=== PATIENT | male | born 1980 | race African-American/Black ===

== ENCOUNTER 2018-12-14 20:11 | Emergency (ER) | payer SELFPAY ==
--- NOTE | 2018-12-14 20:31 | EDM.PDOC ---
ED HPI GENERAL MEDICAL PROBLEM - General Chief Complaint: Respiratory Problem Stated Complaint: RIGHT SIDE PAIN Time Seen by Provider: 12/14/18 20:11 - History of Present Illness INITIAL COMMENTS - FREE TEXT/NARRATIVE: HISTORY AND PHYSICAL: History of present illness: The patient is a 38-year-old male who states no cardiac or pulmonary disease who presents with 2 weeks of cough congestion seems to have worsened over the last 1-2 days. The patient did not get his influenza shot because he doesn't believe in them and he has a history of hypertension. He has not had a documented fever and he doesn't feel short of breath but he says that he has right chest wall pain when he coughs but not sitting here at rest. He has no abdominal pain vomiting or diarrhea and no leg pain or swelling. The patient tells me that he does drink a lot of monster energy drinks and does not hydrate very much. On my evaluation at rest he is speaking in clear sentences and he says that he is not having any chest pain on the right side and less he starts coughing. The cough has been dry and hacking and nonproductive. Patient is also a tobacco smoker and denies drug use. He said that he has had a little dyspnea on exertion over the last 24-48 hours but not consistently throughout this illness. He has no leg pain or swelling Review of systems: As per history of present illness and below otherwise all systems reviewed and negative. Past medical history: As per history of present illness and as reviewed below otherwise noncontributory. Surgical history: As per history of present illness and as reviewed below otherwise noncontributory. Social history: No reported history of drug or alcohol abuse. Family history: As per history of present illness and as reviewed below otherwise noncontributory. Physical exam: General: Well-developed well-nourished man speaking clearly in the ED without breathlessness and vital signs are noted by me. HEENT: Atraumatic, normocephalic, pupils reactive, negative for conjunctival pallor or scleral icterus, mucous membranes moist, throat clear, neck supple, nontender, trachea midline. No cervical adenopathy Lungs: Clear to auscultation with diminished breath sounds in the right base but no worker breathing wheezing or stridor, breath sounds equal bilaterally, chest nontender. Heart: S1S2, regular rhythm and tachycardic rate of my evaluation but no overt murmurs Abdomen: Soft, nondistended, nontender. NABS Pelvis: Deferred Genitourinary: Deferred. Rectal: Deferred. Extremities: Atraumatic, negative for cords or calf pain. Neurovascular unremarkable. No pedal edema or leg asymmetry Neuro: Awake, alert, oriented. Cranial nerves II through XII unremarkable. Cerebellum unremarkable. Motor and sensory unremarkable throughout. Exam nonfocal. Diagnostics: EKG chest x-ray influenza swab CBC CMP lactate CT scan of the chest Therapeutics: DuoNeb, spacer and incentive spirometer IV IV fluids Toradol After the DuoNeb the patient is feeling much improved and on auscultation he is moving much more air. He does sound a bit crackly at the base which may be some atelectasis. Chest x-ray was read as no acute infiltrate but in light of his presentation and the fact that even now he has not really opening up as significantly as he should in the right lower lobe and every time he coughs he is grabbing his side I will proceed to do labs and a CAT scan. Repeat blood pressure at 2355 was 134/84 and his heart rate is 112 while he is sleeping. Upon my reevaluation the patient says that he is feeling significantly improved and would like to go home. I further asked him about other symptomatology such as waking from sleep with shortness of breath or any orthopnea, dyspnea on exertion and he says that he has not really had that to any extent except when he starts coughing. He says that he never has left-sided chest pain and only the chest pain in the chest wall when he is coughing. The patient says that he used to follow with Dr. Mondragon at [facility] and he was already aware of his cardiomegaly and says that that is new or different. I discussed with him and significant other at bedside testing results including the CAT scan and the concern about those findings. It is likely that he has a pneumonitis but a very concerned about the ill-defined results with respect to his clinical presentation. I have offered admission for further care and evaluation and because the patient has to go to work he has declined that. He is aware of my concerns and states he will return if his symptoms evolve or change. I will place his name on the expedited follow-up for cardiology and I will treat him with Levaquin for home as he is a smoker as well as a Z-Pakand an albuterol inhaler with spacer. Impression: Acute bronchitis/right chest wall pain with persistent coughing, bilateral pneumonitis with abnormal CAT scan rule out early congestive heart failure, declining admission Definitive disposition and diagnosis as appropriate pending reevaluation and review of above. right side of the chest Pain Score (Numeric/FACES): 9 - Related Data Allergies Allergy/AdvReac Type Severity Reaction Status Date / Time No Known Allergies Allergy Verified 12/14/18 20:25 Home Meds: Home Meds . [No Known Home Meds] 12/14/18 [History] Past Medical History HEENT History: Reports: None Cardiovascular History: Reports: Hypertension Respiratory History: Reports: None Gastrointestinal History: Reports: None Genitourinary History: Reports: None Musculoskeletal History: Reports: None Neurological History: Reports: None Psychiatric History: Reports: None Endocrine/Metabolic History: Reports: None Hematologic History: Reports: None Immunologic History: Reports: None Oncologic (Cancer) History: Reports: None Dermatologic History: Reports: None - Infectious Disease History Infectious Disease History: Reports: None - Past Surgical History Head Surgeries/Procedures: Reports: None Social & Family History - Family History Family Medical History: Noncontributory ED ROS GENERAL - Review of Systems Review Of Systems: ROS reveals no pertinent complaints other than HPI. ED EXAM, GENERAL - Physical Exam Exam: See Below (see Dictation) Course - Vital Signs Last Recorded V/S: Last Vital Signs Temp 36.1 C 12/14/18 20:25 Pulse 112 H 12/14/18 23:58 Resp 20 12/14/18 20:25 BP 134/89 12/14/18 23:58 Pulse Ox 97 12/14/18 20:50 - Orders/Labs/Meds Orders: Active Orders 24 hr Category Date Time Status Communication Order [RC] STAT Care 12/14/18 21:39 Active EKG Documentation Completion [RC] STAT Care 12/14/18 20:30 Active RT Aerosol Therapy [RC] ASDIRECTED Care 12/14/18 20:34 Active Sodium Chloride 0.9% [Saline Flush] Med 12/14/18 21:46 Active 10 ml FLUSH ASDIRECTED PRN Sodium Chloride 0.9% [Saline Flush] Med 12/14/18 21:46 Active 2.5 ml FLUSH ASDIRECTED PRN Saline Lock Insert [OM.PC] Stat Ot 12/14/18 21:46 Ordered Medication Orders Sodium Chloride (Saline Flush) 10 ml FLUSH ASDIRECTED PRN PRN Reason: Keep Vein Open Sodium Chloride (Saline Flush) 2.5 ml FLUSH ASDIRECTED PRN PRN Reason: Keep Vein Open Labs: Laboratory Tests 12/14/18 12/14/18 12/14/18 Range/Units 22:05 22:05 22:05 WBC 6.19 (4.0-11.0) K/uL RBC 4.06 L (4.50-5.90) M/uL Hgb 12.5 L (13.0-17.0) g/dL Hct 36.8 L (38.0-50.0) % MCV 90.6 (80.0-98.0) fL MCH 30.8 (27.0-32.0) pg MCHC 34.0 (31.0-37.0) g/dL RDW Std Deviation 42.6 (28.0-62.0) fl RDW Coeff of Mahendra 13 (11.0-15.0) % Plt Count 328 (150-400) K/uL MPV 10.00 (7.40-12.00) fL Neut % (Auto) 50.5 (48.0-80.0) % Lymph % (Auto) 42.6 H (16.0-40.0) % [place] % (Auto) 5.8 (0.0-15.0) % Eos % (Auto) 0.6 (0.0-7.0) % Baso % (Auto) 0.5 (0.0-1.5) % Neut # (Auto) 3.1 (1.4-5.7) K/uL Lymph # (Auto) 2.6 H (0.6-2.4) K/uL [place] # (Auto) 0.4 (0.0-0.8) K/uL Eos # (Auto) 0.0 (0.0-0.7) K/uL Baso # (Auto) 0.0 (0.0-0.1) K/uL Nucleated RBC % 0.0 /100WBC Nucleated RBCs # 0 K/uL Lactate 1.2 (0.20-2.00) mmol/L Sodium 142 (136-148) mmol/L Potassium 3.7 (3.5-5.1) mmol/L Chloride 106 (98-107) mmol/L Carbon Dioxide 23.8 (21.0-32.0) mmol/L BUN 21 H (7.0-18.0) mg/dL Creatinine 1.3 (0.8-1.3) mg/dL Est Cr Clr Drug Dosing 64.51 mL/min Estimated GFR (MDRD) > 60.0 ml/min Glucose 94 (74-106) mg/dL Calcium 8.5 (8.5-10.1) mg/dL Total Bilirubin 0.3 (0.2-1.0) mg/dL AST 28 (15-37) IU/L ALT 39 (14-63) IU/L Alkaline Phosphatase 50 (46-116) U/L Total Protein 7.2 (6.4-8.2) g/dL Albumin 3.1 L (3.4-5.0) g/dL Globulin 4.1 H (2.6-4.0) g/dL Albumin/Globulin Ratio 0.8 L (0.9-1.6) Meds: Medications Generic Name Dose Route Start Last Admin Trade Name Freq PRN Reason Stop Dose Admin Sodium Chloride 10 ml 12/14/18 21:46 Saline Flush FLUSH ASDIRECTED PRN Keep Vein Open Sodium Chloride 2.5 ml 12/14/18 21:46 Saline Flush FLUSH ASDIRECTED PRN Keep Vein Open Discontinued Medications Generic Name Dose Route Start Last Admin Trade Name Freq PRN Reason Stop Dose Admin Albuterol/Ipratropium 3 ml 12/14/18 20:34 12/14/18 20:50 Duoneb 3.0-0.5 Mg/3 Ml NEB 12/14/18 20:35 3 ml ONETIME ONE Administration Sodium Chloride 1,000 mls @ 999 mls/hr 12/14/18 21:47 12/14/18 22:10 Normal Saline IV 12/14/18 22:47 999 mls/hr STAT ONE Administration Iopamidol 50 ml 12/14/18 23:04 12/14/18 23:04 Isovue Multipack-370 (76%) IVPUSH 12/14/18 23:05 50 ml ONETIME ONE Administration Ketorolac Tromethamine 30 mg 12/14/18 21:47 12/14/18 22:11 Toradol IVPUSH 12/14/18 21:48 30 mg ONETIME ONE Administration Levofloxacin 500 mg 12/15/18 00:13 Levaquin PO 12/15/18 00:14 ONETIME ONE Levofloxacin 500 mg 12/15/18 00:14 Levaquin PO 12/15/18 00:15 ONETIME ONE Departure - Departure Time of Disposition: 00:17 Disposition: Home, Self-Care 01 Condition: Good Clinical Impression: Pneumonitis, Bronchitis - Discharge Information Referrals: PCP,None [Primary Care Provider] - Forms: ED Department Discharge Additional Instructions: The following information is given to patients seen in the emergency department who are being discharged to home. This information is to outline your options for follow-up care. We provide all patients seen in our emergency department with a follow-up referral. The need for follow-up, as well as the timing and circumstances, are variable depending upon the specifics of your emergency department visit. If you don't have a primary care physician on staff, we will provide you with a referral. We always advise you to contact your personal physician following an emergency department visit to inform them of the circumstance of the visit and for follow-up with them and/or the need for any referrals to a consulting specialist. The emergency department will also refer you to a specialist when appropriate. This referral assures that you have the opportunity for followup care with a specialist. All of these measure are taken in an effort to provide you with optimal care, which includes your followup. Under all circumstances we always encourage you to contact your private physician who remains a resource for coordinating your care. When calling for followup care, please make the office aware that this follow-up is from your recent emergency room visit. If for any reason you are refused follow-up, please contact the [facility] emergency department at and ask to speak to the emergency department charge nurse. [facility] Primary care- Internal Medicine and Family [address] [id number] Please call the clinic tomorrow and schedule a follow-up appointment with our research editor Dr. Johnson for the next few days making sure to tell the corporate receptionist that you were placed on his expedited follow-up list. Please also call and schedule a follow-up appointment with primary care using the same number that it can occur next week. Please use all medications as prescribed and return to ER as needed and as we discussed. - My Orders Last 24 Hours: My Active Orders 12/14/18 20:30 EKG Documentation Completion [RC] STAT 12/14/18 20:34 RT Aerosol Therapy [RC] ASDIRECTED 12/14/18 21:39 Communication Order [RC] STAT 12/14/18 21:46 Sodium Chloride 0.9% [Saline Flush] 10 ml FLUSH ASDIRECTED PRN Sodium Chloride 0.9% [Saline Flush] 2.5 ml FLUSH ASDIRECTED PRN Saline Lock Insert [OM.PC] Stat - Assessment/Plan Last 24 Hours: My Active Orders 12/14/18 20:30 EKG Documentation Completion [RC] STAT 12/14/18 20:34 RT Aerosol Therapy [RC] ASDIRECTED 12/14/18 21:39 Communication Order [RC] STAT 12/14/18 21:46 Sodium Chloride 0.9% [Saline Flush] 10 ml FLUSH ASDIRECTED PRN Sodium Chloride 0.9% [Saline Flush] 2.5 ml FLUSH ASDIRECTED PRN Saline Lock Insert [OM.PC] Stat
[2018-12-14] MEDS ORDERED: Albuterol/Ipratropium 3.0-0.5 MG/3 ML Neb Soln NEB ONE (20:34)
--- NOTE | 2018-12-14 20:55 | CR ---
INDICATION: Cough x2 weeks with right side chest pain. TECHNIQUE: Chest 2 views COMPARISON: February 05, 2016. FINDINGS: Cardiovascular and mediastinum: Moderate cardiomegaly with central vascular congestion. Lungs and pleural spaces: Lungs are clear. No sign of infiltrate or mass. No sign of pleural effusion. No pneumothorax. Bones and soft tissues: No significant findings. IMPRESSION: Central congestive changes could represent pulmonary edema or bronchitis. No sign of lobar pneumonia. Dictated by Oleg Grajeda MD @ Dec 14 2018 8:49PM Signed by Dr. Oleg Grajeda @ Dec 14 2018 8:53PM
[2018-12-14] MEDS ORDERED: Sodium Chloride 0.9% 2.5 ML Syringe FLUSH PRN (21:46)
[2018-12-14] MEDS ORDERED: Sodium Chloride 0.9% 10 ML Syringe FLUSH PRN (21:46)
[2018-12-14] MEDS ORDERED: Sodium Chloride 0.9% 1,000 ML IV ONE (21:47)
[2018-12-14] MEDS ORDERED: Ketorolac 30 MG/ML SDV IVPUSH ONE (21:47)
[2018-12-14 22:36] LABS: CHLORIDE,CL 106 mmol/L (98-107); SODIUM,NA 142 mmol/L (136-148)
[2018-12-14] MEDS ORDERED: Iopamidol 755 MG/ML 500 ML Multipack Bottle IVPUSH ONE (23:04)
--- NOTE | 2018-12-14 23:49 | CT ---
INDICATION: Chest pain and cough TECHNIQUE: CT chest pulmonary PE protocol acquired with IV contrast. 50 mL of Isovue 370 administered. COMPARISON: None FINDINGS: Cardiovascular structures: Limited evaluation of some distal segmental and subsegmental pulmonary arteries due to heterogeneous opacification and mild respiratory motion. No large, central or proximal segmental pulmonary embolus seen. Cardiomegaly. Contrast reflux into the IVC and hepatic veins. Borderline ectasia of the ascending aorta. Mediastinum and lorene: An enlarged azygoesophageal lymph node measuring up to 1.9 cm in short axis, mildly enlarged and borderline paratracheal lymph nodes and additional shotty subcentimeter mediastinal lymph nodes. Borderline hilar lymph nodes. Lungs: Bilateral patchy ground-glass opacities involving all lobes. Interlobular septal thickening at the apices. Central bronchial wall thickening versus peribronchial edema. Pleura and pericardium: A tiny right pleural effusion. Chest wall and axilla: No mass or adenopathy. Upper abdomen: Unremarkable. Bones: No significant findings. IMPRESSION: No CT evidence of a large, central or proximal segmental pulmonary embolus. Bilateral patchy ground-glass opacities compatible with infectious or inflammatory pneumonitis versus evolving pulmonary edema. Cardiomegaly with findings compatible with elevated right cardiac pressure. Central bronchial wall thickening versus peribronchial edema. Correlate for bronchitis. A tiny right pleural effusion. Enlarged and borderline mediastinal and hilar lymph nodes. Dictated by Garo Appiah MD @ 12/14/2018 11:48:04 PM Please note that all CT scans at this facility use dose modulation, iterative reconstruction, and/or weight-based dosing when appropriate to reduce radiation dose to as low as reasonably achievable. Dictated by: Garo Appiah MD @ 12/14/2018 23:48:13 (Electronically Signed)
[2018-12-15] MEDS ORDERED: Levofloxacin 500 MG Tab PO ONE ×2 (00:13→00:14)
[2018-12-15] MEDS ORDERED: Albuterol/Ipratropium 3.0-0.5 MG/3 ML Neb Soln NEB ONE (00:19)
[2018-12-15 00:34] VITALS: BP 129/87
[2018-12-15] MEDS ORDERED: Codeine/Promethazine 10-6.25 MG/5 ML Syrup 5 ML UD Cup PO ONE (00:38)
== END 2018-12-15 00:53 | disposition home or self-care (01) ==
LOC: MW.ED 20:11
DX: J18.9 Pneumonia, unspecified organism (principal); J40 Bronchitis, not specified as acute or chronic; R07.89 Other chest pain; I10 Essential (primary) hypertension
CPT/HCPCS: 36415; 71046; 71275; 80053; 83605; 85025; 87804; 93005; 94640; 96361; 96374; 99285; A9270; J1885; J7040; Q9967; 99284; J7620-GY

== ENCOUNTER 2018-12-15 15:30 | Observation (INO) | payer SELFPAY ==
[2018-12-15] MEDS ORDERED: Lisinopril 10 MG Tab PO SCH (15:45)
[2018-12-15] MEDS ORDERED: Sodium Chloride 0.9% 2.5 ML Syringe FLUSH PRN (15:51)
[2018-12-15] MEDS ORDERED: Sodium Chloride 0.9% 10 ML Syringe FLUSH PRN (15:51)
[2018-12-15] MEDS ORDERED: Acetaminophen 325 MG Tab PO PRN (15:59)
[2018-12-15] MEDS ORDERED: Ondansetron 4 MG Tab.DIS PO PRN (15:59)
[2018-12-15] MEDS ORDERED: Temazepam 15 MG Cap PO PRN (15:59)
[2018-12-15] MEDS ORDERED: oxyCODONE 5 MG Tab PO PRN (15:59)
[2018-12-15] MEDS ORDERED: Morphine 2 MG/ML Syringe IVPUSH PRN (15:59)
[2018-12-15] MEDS ORDERED: Docusate Sodium 100 MG Cap PO PRN (15:59)
[2018-12-15] MEDS ORDERED: Heparin Sodium 5,000 Units/ML Vial SUBCUT SCH (16:00)
[2018-12-15] MEDS: Furosemide 40 MG/4 ML VIAL IVPUSH SCH (16:06)
--- NOTE | 2018-12-15 16:09 | PCM.HP ---
H&P History of Present Illness - General Date of Service: 12/15/18 Admit Problem/Dx: Admission Diagnosis/Problem Admission Diagnosis/Problem Congestive heart failure, new onset. HTN Source of Information: Patient History Limitations: Reports: No Limitations - History of Present Illness Initial Comments - Free Text/Narative: The patient is a 38-year-old gentleman who had been evaluated by cardiology and had been admitted directly to hospitalization under my service. The patient was evaluated in the emergency department on December 14, 2018 out of concern for shortness of breath and cough. The patient reported that he had had 2 weeks of cough and congestion that had worsened. The patient says that he has a history of high blood pressure but has not been compliant with his medications. He also had been complaining of shortness of breath. Patient has denied any chest pain except in his right lower chest wall when coughing. The patient is currently a smoker. A cardiology evaluation the patient was noted to have cardiomegaly on chest x-ray as well as cardiomyopathy with a 25% ejection fraction on 2-D echocardiogram. The patient had denied any leg pain or swelling. The patient also has said that he has had some shortness of breath when lying flat. He is in no specific aggravating or relieving factors. He is currently working. Onset of Symptoms: Reports: Gradual Duration of Symptoms: Reports: Week(s): Location: Reports: Chest Quality: Reports: Dull Severity: Moderate Improves with: Reports: Rest Worsens with: Reports: Movement Context: Reports: Other (Upper respiratory illness) Associated Symptoms: Reports: Chest Pain, Cough - Related Data Allergies/Adverse Reactions: Allergies Allergy/AdvReac Type Severity Reaction Status Date / Time No Known Allergies Allergy Verified 12/14/18 20:25 Home Medications: Home Meds Albuterol Sulfate [Albuterol Sulfate Hfa] 1 - 2 puff IH Q6H PRN 12/15/18 [ History] Azithromycin [Zithromax] 250 mg PO ASDIRECTED 12/15/18 [History] Levofloxacin 750 mg PO DAILY 12/15/18 [History] Past Medical History HEENT History: Reports: None Cardiovascular History: Reports: Hypertension Respiratory History: Reports: None Gastrointestinal History: Reports: None Genitourinary History: Reports: None Musculoskeletal History: Reports: None Neurological History: Reports: None Psychiatric History: Reports: None Endocrine/Metabolic History: Reports: None Hematologic History: Reports: None Immunologic History: Reports: None Oncologic (Cancer) History: Reports: None Dermatologic History: Reports: None - Infectious Disease History Infectious Disease History: Reports: None - Past Surgical History Head Surgeries/Procedures: Reports: None Social & Family History - Family History Family Medical History: Noncontributory - Tobacco Use Smoking Status *Q: Current Every Day Smoker Tobacco Use Within Last Twelve Months: Cigarettes - Caffeine Use Caffeine Use: Reports: Energy Drinks - Alcohol Use Alcohol Use History: No - Living Situation & Occupation Living situation: Reports: , with Spouse, with Family Occupation: Employed H&P Review of Systems - Review of Systems: Review Of Systems: See Below General: Reports: Fever, Other (Excessive thirst) HEENT: Reports: Sinus Congestion Pulmonary: Reports: Shortness of Breath, Cough. Denies: Sputum Cardiovascular: Reports: Chest Pain, Palpitations Gastrointestinal: Reports: No Symptoms Genitourinary: Reports: No Symptoms Musculoskeletal: Reports: No Symptoms Skin: Reports: No Symptoms Psychiatric: Reports: No Symptoms Neurological: Reports: No Symptoms Hematologic/Lymphatic: Reports: No Symptoms Immunologic: Reports: No Symptoms Exam - Exam Exam: See Below - Vital Signs Vital Signs: Last Vital Signs Temp 37.4 C 12/15/18 15:39 Pulse Resp 20 12/15/18 15:39 BP 156/104 H 12/15/18 16:06 Pulse Ox 92 L 12/15/18 15:39 - Exam Quality Assessment: No: Supplemental Oxygen General: Alert, Oriented, Cooperative, Mild Distress HEENT: Conjunctiva Clear, EACs Clear, EOMI, Hearing Intact, Mucosa Moist & [place] , Pupils Equal, PERRLA Neck: Supple, Trachea Midline. No: Carotid Bruit, JVD Lungs: Normal Respiratory Effort, Crackles Cardiovascular: Regular Rhythm, Tachycardia. No: Regular Rate GI/Abdominal Exam: Normal Bowel Sounds, Soft, Non-Tender, No Distention (Male) Exam: Deferred Rectal (Males) Exam: Deferred Back Exam: Normal Inspection, Full Range of Motion Extremities: Normal Inspection, Normal Range of Motion, No Pedal Edema Skin: Warm, Dry, Intact Neurological: Cranial Nerves Intact, Reflexes Equal Bilateral, Normal Gait Neuro Extensive - Mental Status: Alert, Oriented x3, Normal Mood/Affect, Memory Intact Neuro Extensive - Motor, Sensory, Reflexes: CN II-XII Intact Psychiatric: Alert, Normal Affect, Normal Mood - Patient Data Result Diagrams: 12/15/18 16:00 12/15/18 16:00 - Problem List (1) Congestive heart failure with reduced left ventricular function, NYHA class 3 SNOMED Code(s): 772142111, 538056135, [id number] ICD Code: I50.20 - UNSPECIFIED SYSTOLIC (CONGESTIVE) HEART FAILURE Status: Chronic Priority: High Current Visit: Yes (2) Hypertensive cardiomegaly with heart failure SNOMED Code(s): 183809101, 767703273 ICD Code: I11.0 - HYPERTENSIVE HEART DISEASE WITH HEART FAILURE Status: Chronic Priority: High Current Visit: Yes (3) Hypertension SNOMED Code(s): 16062598 ICD Code: I10 - ESSENTIAL (PRIMARY) HYPERTENSION Status: Chronic Priority : High Current Visit: Yes Qualifiers: Hypertension type: essential hypertension Qualified Code(s): I10 - Essential (primary) hypertension Problem List Initiated/Reviewed/Updated: Yes Orders Last 24hrs: Active Orders 24 hr Category Date Time Status Patient Status [ADT] Routine ADT 12/15/18 15:59 Ordered Cardiac Monitoring [RC] CONTINUOUS Care 12/15/18 16:02 Ordered Intake and Output Strict [RC] ASDIRECTED Care 12/15/18 15:43 Active Intake and Output [RC] QSHIFT Care 12/15/18 16:02 Ordered Notify Provider Consults [RC] ASDIRECTED Care 12/15/18 16:06 Ordered Oxygen Therapy [RC] PRN Care 12/15/18 15:59 Ordered Up ad Debra [RC] ASDIRECTED Care 12/15/18 15:59 Ordered VTE/DVT Education [RC] PER UNIT ROUTINE Care 12/15/18 15:59 Ordered Vital Signs [RC] Q4H Care 12/15/18 15:59 Ordered Weight Daily [Height and Weight] [RC] DAILY Care 12/15/18 15:42 Active Consult to Physician [CONS] Routine Cons 12/15/18 15:59 Ordered Heart Healthy Diet [DIET] Diet 12/15/18 Dinner Ordered Echo Comp wo Cont [US] Routine Exams 12/16/18 15:44 Ordered B-TYPE NATRIURETIC PEPTIDE,BNP [CHEM] Routine Lab 12/15/18 15:48 Ordered CBC WITH AUTO DIFF [HEME] AM Lab 12/16/18 05:11 Ordered CBC WITH AUTO DIFF [HEME] Routine Lab 12/15/18 15:48 Ordered COMPREHENSIVE METABOLIC PN,CMP [CHEM] AM Lab 12/16/18 05:11 Ordered COMPREHENSIVE METABOLIC PN,CMP [CHEM] Routine Lab 12/15/18 15:47 Ordered GLYCOSYLATED HEMOGLOBIN,HGBA1C [CHEM] Routine Lab 12/15/18 15:49 Ordered GLYCOSYLATED HEMOGLOBIN,HGBA1C [CHEM] Routine Lab 12/15/18 16:07 Ordered INR,PT,PROTHROMBIN TIME [COAG] Routine Lab 12/15/18 15:49 Ordered LIPID PANEL [CHEM] AM Lab 12/16/18 05:11 Ordered MAGNESIUM [CHEM] Routine Lab 12/15/18 15:59 Ordered PHOSPHORUS [CHEM] Routine Lab 12/15/18 15:59 Ordered TROPONIN I [CHEM] Q8H Lab 12/15/18 15:47 Ordered TROPONIN I [CHEM] Q8H Lab 12/15/18 23:47 Ordered TROPONIN I [CHEM] Q8H Lab 12/16/18 07:47 Ordered TSH [CHEM] Routine Lab 12/15/18 15:47 Ordered Acetaminophen [Tylenol] Med 12/15/18 15:59 Ordered 650 mg PO Q4H PRN Docusate Sodium [Colace] Med 12/15/18 15:59 Ordered 100 mg PO BID PRN Furosemide [Lasix] Med 12/15/18 15:45 Active 40 mg IVPUSH BID Heparin Sodium Med 12/15/18 16:00 Active 5,000 units SUBCUT Q12H Heparin Sodium Med 12/15/18 16:00 Ordered 5,000 units SUBCUT Q8H Lisinopril [Prinivil] Med 12/15/18 15:45 Active 10 mg PO DAILY Morphine Med 12/15/18 15:59 Ordered 2 mg IVPUSH Q2H PRN Ondansetron [Zofran ODT] Med 12/15/18 15:59 Ordered 4 mg PO Q4H PRN Sodium Chloride 0.9% [Saline Flush] Med 12/15/18 15:51 Active 10 ml FLUSH ASDIRECTED PRN Sodium Chloride 0.9% [Saline Flush] Med 12/15/18 15:51 Active 2.5 ml FLUSH ASDIRECTED PRN Temazepam [Restoril] Med 12/15/18 15:59 Ordered 15 mg PO BEDTIME PRN oxyCODONE Med 12/15/18 15:59 Ordered 5 mg PO Q4H PRN Saline Lock Insert [OM.PC] Routine Oth 12/15/18 15:51 Ordered Resuscitation Status Routine Resus Stat 12/15/18 15:59 Ordered Medication Orders Acetaminophen (Tylenol) 650 mg PO Q4H PRN PRN Reason: Pain (Mild 1-3)/fever Docusate Sodium (Colace) 100 mg PO BID PRN PRN Reason: Constipation Furosemide (Lasix) 40 mg IVPUSH BID [facility] Last Admin: 12/15/18 16:06 Dose: 40 mg Heparin Sodium (Porcine) (Heparin Sodium) 5,000 units SUBCUT Q12H [facility] Heparin Sodium (Porcine) (Heparin Sodium) 5,000 units SUBCUT Q8H [facility] Lisinopril (Prinivil) 10 mg PO DAILY [facility] Last Admin: 12/15/18 16:06 Dose: 10 mg Morphine Sulfate (Morphine) 2 mg IVPUSH Q2H PRN PRN Reason: Pain (severe 7-10) Stop: 12/16/18 16:05 Ondansetron HCl (Zofran Odt) 4 mg PO Q4H PRN PRN Reason: nausea, able to take PO Oxycodone HCl (Oxycodone) 5 mg PO Q4H PRN PRN Reason: Pain (moderate 4-6) Sodium Chloride (Saline Flush) 10 ml FLUSH ASDIRECTED PRN PRN Reason: Keep Vein Open Sodium Chloride (Saline Flush) 2.5 ml FLUSH ASDIRECTED PRN PRN Reason: Keep Vein Open Temazepam (Restoril) 15 mg PO BEDTIME PRN PRN Reason: Sleep Assessment/Plan Comment:: The patient is a 38-year-old gentleman who does have a history of hypertension and reportedly had been diagnosed with an "enlarged heart" 5 years ago. Is likely that the patient's findings with regards to cardiology are chronic in nature. The patient also has been noncompliant with his antihypertensive medications and is likely indicates hypertensive cardiomyopathy. I've ordered consultation with cardiology. The patient will be kept on a heart healthy, low- sodium diet with fluid restriction. The patient will also be kept on telemetry. The patient will have his vital signs monitored every 4 hours and his medications will be adjusted as needed to control his pressures. The patient will also be given DVT prophylaxis with the use of Lovenox. I have also recommended the patient not be on antibiotics at this time. These can be restarted if necessary. I've also ordered repeat laboratory studies for the morning. The patient has been encouraged to ambulate. The patient also had a history of excessive thirst and urination as well as family history of diabetes and I ordered a hemoglobin A1c to help exclude diabetes mellitus.
[2018-12-15 16:43] LABS: HEMOGLOBIN A1C 5.6 % (4.5-6.2)
[2018-12-15 16:49] LABS: CHLORIDE,CL 107 mmol/L (98-107); SODIUM,NA 142 mmol/L (136-148)
[2018-12-15] MEDS ORDERED: Albuterol 8 GM Inhaler INH PRN (17:08)
[2018-12-15] MEDS: Heparin Sodium 5,000 Units/ML Vial SUBCUT SCH (17:22)
[2018-12-15] MEDS ORDERED: Benzocaine/Cetylpyridinium/Menthol Lozenge MUCMEM PRN (20:42)
[2018-12-15] MEDS: Metoprolol Succinate 25 MG Tab.ER PO SCH (23:06)
[2018-12-16] MEDS: Heparin Sodium 5,000 Units/ML Vial SUBCUT SCH ×2 (03:38→15:51)
[2018-12-16] MEDS: Furosemide 40 MG/4 ML VIAL IVPUSH SCH (08:27)
[2018-12-16] MEDS: Metoprolol Succinate 25 MG Tab.ER PO SCH (08:34)
[2018-12-16 08:35] LABS: CHLORIDE,CL 107 mmol/L (98-107); SODIUM,NA 143 mmol/L (136-148)
[2018-12-16] MEDS ORDERED: Lisinopril 10 MG Tab PO SCH (09:00)
--- NOTE | 2018-12-16 11:23 | PCM.PN ---
- Patient Data Vitals - Most Recent: Last Vital Signs Temp 36.2 C 12/16/18 08:00 Pulse 122 H 12/16/18 08:34 Resp 18 12/16/18 08:00 BP 153/114 H 12/16/18 08:34 Pulse Ox 93 L 12/16/18 08:00 Weight - Most Recent: 76.884 kg I&O - Last 24 Hours: Intake & Output 12/15/18 12/16/18 12/16/18 22:59 06:59 14:59 Intake Total 60 510 Output Total 1650 Balance 60 -1140 Lab Results Last 24 Hours: Laboratory Results - last 24 hr 12/15/18 12/15/18 12/15/18 Range/Units 15:55 16:00 16:00 WBC 8.90 (4.0-11.0) K/uL RBC 3.95 L (4.50-5.90) M/uL Hgb 12.2 L (13.0-17.0) g/dL Hct 36.3 L (38.0-50.0) % MCV 91.9 (80.0-98.0) fL MCH 30.9 (27.0-32.0) pg MCHC 33.6 (31.0-37.0) g/dL RDW Std Deviation 44.1 (28.0-62.0) fl RDW Coeff of Mahendra 13 (11.0-15.0) % Plt Count 303 (150-400) K/uL MPV 10.00 (7.40-12.00) fL Neut % (Auto) 63.5 (48.0-80.0) % Lymph % (Auto) 30.4 (16.0-40.0) % Delta % (Auto) 5.5 (0.0-15.0) % Eos % (Auto) 0.3 (0.0-7.0) % Baso % (Auto) 0.3 (0.0-1.5) % Neut # (Auto) 5.6 (1.4-5.7) K/uL Lymph # (Auto) 2.7 H (0.6-2.4) K/uL Delta # (Auto) 0.5 (0.0-0.8) K/uL Eos # (Auto) 0.0 (0.0-0.7) K/uL Baso # (Auto) 0.0 (0.0-0.1) K/uL Nucleated RBC % 0.0 /100WBC Nucleated RBCs # 0 K/uL INR Sodium 142 (136-148) mmol/L Potassium 4.0 (3.5-5.1) mmol/L Chloride 107 (98-107) mmol/L Carbon Dioxide 24.6 (21.0-32.0) mmol/L BUN 15 (7.0-18.0) mg/dL Creatinine 1.3 (0.8-1.3) mg/dL Est Cr Clr Drug Dosing 64.51 mL/min Estimated GFR (MDRD) > 60.0 ml/min Glucose 103 (74-106) mg/dL Hemoglobin A1c (4.5-6.2) % Calcium 8.4 L (8.5-10.1) mg/dL Phosphorus 3.6 (2.6-4.7) mg/dL Magnesium 2.1 (1.8-2.4) mg/dL Total Bilirubin 0.3 (0.2-1.0) mg/dL AST 21 (15-37) IU/L ALT 31 (14-63) IU/L Alkaline Phosphatase 45 L (46-116) U/L Troponin I 0.055 (0.000-0.056) ng/mL B-Natriuretic Peptide (<100) PG/ML Total Protein 6.7 (6.4-8.2) g/dL Albumin 2.7 L (3.4-5.0) g/dL Globulin 4.0 (2.6-4.0) g/dL Albumin/Globulin Ratio 0.7 L (0.9-1.6) Triglycerides (0-200) mg/dL Cholesterol (50-200) mg/dL LDL Cholesterol, Calc (60-180) mg/dL VLDL Cholesterol (5-55) mg/dL HDL Cholesterol (40-60) mg/dL Cholesterol/HDL Ratio (3.3-6.0) TSH 3rd Generation 1.00 (0.36-3.74) uIU/mL 12/15/18 12/15/18 12/15/18 Range/Units 16:00 16:00 16:00 WBC (4.0-11.0) K/uL RBC (4.50-5.90) M/uL Hgb (13.0-17.0) g/dL Hct (38.0-50.0) % MCV (80.0-98.0) fL MCH (27.0-32.0) pg MCHC (31.0-37.0) g/dL RDW Std Deviation (28.0-62.0) fl RDW Coeff of Mahendra (11.0-15.0) % Plt Count (150-400) K/uL MPV (7.40-12.00) fL Neut % (Auto) (48.0-80.0) % Lymph % (Auto) (16.0-40.0) % Delta % (Auto) (0.0-15.0) % Eos % (Auto) (0.0-7.0) % Baso % (Auto) (0.0-1.5) % Neut # (Auto) (1.4-5.7) K/uL Lymph # (Auto) (0.6-2.4) K/uL Delta # (Auto) (0.0-0.8) K/uL Eos # (Auto) (0.0-0.7) K/uL Baso # (Auto) (0.0-0.1) K/uL Nucleated RBC % /100WBC Nucleated RBCs # K/uL INR 1.03 Sodium (136-148) mmol/L Potassium (3.5-5.1) mmol/L Chloride (98-107) mmol/L Carbon Dioxide (21.0-32.0) mmol/L BUN (7.0-18.0) mg/dL Creatinine (0.8-1.3) mg/dL Est Cr Clr Drug Dosing mL/min Estimated GFR (MDRD) ml/min Glucose (74-106) mg/dL Hemoglobin A1c 5.6 (4.5-6.2) % Calcium (8.5-10.1) mg/dL Phosphorus (2.6-4.7) mg/dL Magnesium (1.8-2.4) mg/dL Total Bilirubin (0.2-1.0) mg/dL AST (15-37) IU/L ALT (14-63) IU/L Alkaline Phosphatase (46-116) U/L Troponin I (0.000-0.056) ng/mL B-Natriuretic Peptide 264 H (<100) PG/ML Total Protein (6.4-8.2) g/dL Albumin (3.4-5.0) g/dL Globulin (2.6-4.0) g/dL Albumin/Globulin Ratio (0.9-1.6) Triglycerides (0-200) mg/dL Cholesterol (50-200) mg/dL LDL Cholesterol, Calc (60-180) mg/dL VLDL Cholesterol (5-55) mg/dL HDL Cholesterol (40-60) mg/dL Cholesterol/HDL Ratio (3.3-6.0) TSH 3rd Generation (0.36-3.74) uIU/mL 12/15/18 12/16/18 12/16/18 Range/Units 23:53 07:54 07:54 WBC (4.0-11.0) K/uL RBC (4.50-5.90) M/uL Hgb (13.0-17.0) g/dL Hct (38.0-50.0) % MCV (80.0-98.0) fL MCH (27.0-32.0) pg MCHC (31.0-37.0) g/dL RDW Std Deviation (28.0-62.0) fl RDW Coeff of Mahendra (11.0-15.0) % Plt Count (150-400) K/uL MPV (7.40-12.00) fL Neut % (Auto) (48.0-80.0) % Lymph % (Auto) (16.0-40.0) % Delta % (Auto) (0.0-15.0) % Eos % (Auto) (0.0-7.0) % Baso % (Auto) (0.0-1.5) % Neut # (Auto) (1.4-5.7) K/uL Lymph # (Auto) (0.6-2.4) K/uL Delta # (Auto) (0.0-0.8) K/uL Eos # (Auto) (0.0-0.7) K/uL Baso # (Auto) (0.0-0.1) K/uL Nucleated RBC % /100WBC Nucleated RBCs # K/uL INR Sodium 143 (136-148) mmol/L Potassium 4.1 (3.5-5.1) mmol/L Chloride 107 (98-107) mmol/L Carbon Dioxide 22.9 (21.0-32.0) mmol/L BUN 13 (7.0-18.0) mg/dL Creatinine 1.3 (0.8-1.3) mg/dL Est Cr Clr Drug Dosing 64.51 mL/min Estimated GFR (MDRD) > 60.0 ml/min Glucose 96 (74-106) mg/dL Hemoglobin A1c (4.5-6.2) % Calcium 8.5 (8.5-10.1) mg/dL Phosphorus (2.6-4.7) mg/dL Magnesium (1.8-2.4) mg/dL Total Bilirubin 0.8 (0.2-1.0) mg/dL AST 17 (15-37) IU/L ALT 28 (14-63) IU/L Alkaline Phosphatase 47 (46-116) U/L Troponin I 0.056 0.058 H* (0.000-0.056) ng/mL B-Natriuretic Peptide (<100) PG/ML Total Protein 6.5 (6.4-8.2) g/dL Albumin 2.9 L (3.4-5.0) g/dL Globulin 3.6 (2.6-4.0) g/dL Albumin/Globulin Ratio 0.8 L (0.9-1.6) Triglycerides 80 (0-200) mg/dL Cholesterol 212 H (50-200) mg/dL LDL Cholesterol, Calc 160 (60-180) mg/dL VLDL Cholesterol 16 (5-55) mg/dL HDL Cholesterol 36 L (40-60) mg/dL Cholesterol/HDL Ratio 5.9 (3.3-6.0) TSH 3rd Generation (0.36-3.74) uIU/mL 12/16/18 Range/Units 07:54 WBC 8.03 (4.0-11.0) K/uL RBC 4.17 L (4.50-5.90) M/uL Hgb 12.9 L (13.0-17.0) g/dL Hct 37.7 L (38.0-50.0) % MCV 90.4 (80.0-98.0) fL MCH 30.9 (27.0-32.0) pg MCHC 34.2 (31.0-37.0) g/dL RDW Std Deviation 43.3 (28.0-62.0) fl RDW Coeff of Mahendra 13 (11.0-15.0) % Plt Count 327 (150-400) K/uL MPV 10.30 (7.40-12.00) fL Neut % (Auto) 63.5 (48.0-80.0) % Lymph % (Auto) 28.4 (16.0-40.0) % Delta % (Auto) 7.7 (0.0-15.0) % Eos % (Auto) 0.2 (0.0-7.0) % Baso % (Auto) 0.2 (0.0-1.5) % Neut # (Auto) 5.1 (1.4-5.7) K/uL Lymph # (Auto) 2.3 (0.6-2.4) K/uL Delta # (Auto) 0.6 (0.0-0.8) K/uL Eos # (Auto) 0.0 (0.0-0.7) K/uL Baso # (Auto) 0.0 (0.0-0.1) K/uL Nucleated RBC % 0.0 /100WBC Nucleated RBCs # 0 K/uL INR Sodium (136-148) mmol/L Potassium (3.5-5.1) mmol/L Chloride (98-107) mmol/L Carbon Dioxide (21.0-32.0) mmol/L BUN (7.0-18.0) mg/dL Creatinine (0.8-1.3) mg/dL Est Cr Clr Drug Dosing mL/min Estimated GFR (MDRD) ml/min Glucose (74-106) mg/dL Hemoglobin A1c (4.5-6.2) % Calcium (8.5-10.1) mg/dL Phosphorus (2.6-4.7) mg/dL Magnesium (1.8-2.4) mg/dL Total Bilirubin (0.2-1.0) mg/dL AST (15-37) IU/L ALT (14-63) IU/L Alkaline Phosphatase (46-116) U/L Troponin I (0.000-0.056) ng/mL B-Natriuretic Peptide (<100) PG/ML Total Protein (6.4-8.2) g/dL Albumin (3.4-5.0) g/dL Globulin (2.6-4.0) g/dL Albumin/Globulin Ratio (0.9-1.6) Triglycerides (0-200) mg/dL Cholesterol (50-200) mg/dL LDL Cholesterol, Calc (60-180) mg/dL VLDL Cholesterol (5-55) mg/dL HDL Cholesterol (40-60) mg/dL Cholesterol/HDL Ratio (3.3-6.0) TSH 3rd Generation (0.36-3.74) uIU/mL Med Orders - Current: Current Medications Acetaminophen (Tylenol) 650 mg PO Q4H PRN PRN Reason: Pain (Mild 1-3)/fever Albuterol (Ventolin Hfa) 8 gm INH Q6H PRN PRN Reason: Shortness of Breath Benzocaine/Menthol (Cepacol Sore Throat) 1 lozenge MUCMEM Q2H PRN PRN Reason: Sore Throat Last Admin: 12/15/18 21:01 Dose: 1 lozenge Docusate Sodium (Colace) 100 mg PO BID PRN PRN Reason: Constipation Furosemide (Lasix) 40 mg IVPUSH BID [facility] Last Admin: 12/16/18 08:27 Dose: 40 mg Heparin Sodium (Porcine) (Heparin Sodium) 5,000 units SUBCUT Q12H [facility] Last Admin: 12/16/18 03:38 Dose: 5,000 units Lisinopril (Prinivil) 20 mg PO DAILY [facility] Last Admin: 12/16/18 08:33 Dose: 20 mg Metoprolol Succinate (Toprol Xl) 25 mg PO DAILY [facility] Last Admin: 12/16/18 08:34 Dose: 25 mg Morphine Sulfate (Morphine) 2 mg IVPUSH Q2H PRN PRN Reason: Pain (severe 7-10) Stop: 12/16/18 16:05 Ondansetron HCl (Zofran Odt) 4 mg PO Q4H PRN PRN Reason: nausea, able to take PO Oxycodone HCl (Oxycodone) 5 mg PO Q4H PRN PRN Reason: Pain (moderate 4-6) Sodium Chloride (Saline Flush) 10 ml FLUSH ASDIRECTED PRN PRN Reason: Keep Vein Open Sodium Chloride (Saline Flush) 2.5 ml FLUSH ASDIRECTED PRN PRN Reason: Keep Vein Open Temazepam (Restoril) 15 mg PO BEDTIME PRN PRN Reason: Sleep Discontinued Medications Heparin Sodium (Porcine) (Heparin Sodium) 5,000 units SUBCUT Q8H [facility] Last Admin: 12/15/18 19:48 Dose: Not Given Lisinopril (Prinivil) 10 mg PO DAILY [facility] Last Admin: 12/15/18 16:06 Dose: 10 mg - Problem List & Annotations (1) Congestive heart failure with reduced left ventricular function, NYHA class 3 SNOMED Code(s): 773333930, 537828556, 459974214 Code(s): I50.20 - UNSPECIFIED SYSTOLIC (CONGESTIVE) HEART FAILURE Status: Chronic Priority: High Current Visit: Yes (2) Hypertensive cardiomegaly with heart failure SNOMED Code(s): 387159035, 947310583 Code(s): I11.0 - HYPERTENSIVE HEART DISEASE WITH HEART FAILURE Status: Chronic Priority: High Current Visit: Yes (3) Hypertension SNOMED Code(s): 06591778 Code(s): I10 - ESSENTIAL (PRIMARY) HYPERTENSION Status: Chronic Priority : High Current Visit: Yes Qualifiers: Hypertension type: essential hypertension Qualified Code(s): I10 - Essential (primary) hypertension - My Orders Last 24 Hours: My Active Orders 12/15/18 15:28 Telemetry Monitoring [Cardiac Monitoring] [RC] Q8H 12/15/18 15:59 Patient Status [ADT] Routine Oxygen Therapy [RC] PRN Up ad Debra [RC] ASDIRECTED VTE/DVT Education [RC] PER UNIT ROUTINE Vital Signs [RC] Q4H Consult to Physician [CONS] Routine Acetaminophen [Tylenol] 650 mg PO Q4H PRN Docusate Sodium [Colace] 100 mg PO BID PRN Morphine 2 mg IVPUSH Q2H PRN Ondansetron [Zofran ODT] 4 mg PO Q4H PRN Temazepam [Restoril] 15 mg PO BEDTIME PRN oxyCODONE 5 mg PO Q4H PRN Resuscitation Status Routine 12/15/18 16:02 Cardiac Monitoring [RC] CONTINUOUS Intake and Output [RC] QSHIFT 12/15/18 16:06 Notify Provider Consults [RC] ASDIRECTED 12/15/18 17:08 Albuterol [Ventolin HFA] 8 gm INH Q6H PRN 12/15/18 20:42 Benzocaine/Cetylpyrd/Menthol [Cepacol Sore Throat] 1 lozenge MUCMEM Q2H PRN 12/15/18 22:45 Metoprolol Succinate [Toprol XL] 25 mg PO DAILY 12/15/18 Dinner Heart Healthy Diet [DIET] - Plan Plan:: The patient is a 38-year-old gentleman who does have a history of hypertension and reportedly had been diagnosed with an "enlarged heart" 5 years ago. Is likely that the patient's findings with regards to cardiology are chronic in nature. The patient also has been noncompliant with his antihypertensive medications and is likely indicates hypertensive cardiomyopathy. I've ordered consultation with cardiology. The patient will be kept on a heart healthy, low- sodium diet with fluid restriction. The patient will also be kept on telemetry. The patient will have his vital signs monitored every 4 hours and his medications will be adjusted as needed to control his pressures. The patient will also be given DVT prophylaxis with the use of Lovenox. I have also recommended the patient not be on antibiotics at this time. These can be restarted if necessary. I've also ordered repeat laboratory studies for the morning. The patient has been encouraged to ambulate. The patient also had a history of excessive thirst and urination as well as family history of diabetes and I ordered a hemoglobin A1c to help exclude diabetes mellitus.
[2018-12-16 11:46] VITALS: BP 143/99
--- NOTE | 2018-12-16 13:40 | PCM.DCSUM1 ---
Discharge Summary - Hospital Course Free Text/Narrative:: The patient was a direct admit to hospitalization from cardiology office secondary to congestive heart failure. Patient was noted to have an ejection fraction of 25-30%. Diagnosis: Stroke: No - Discharge Data Discharge Date: 12/16/18 Discharge Disposition: DC/Tfer to Acute Hospital 02 Condition: Good - Discharge Diagnosis/Problem(s) (1) Congestive heart failure with reduced left ventricular function, NYHA class 3 SNOMED Code(s): 206191335, 566057864, [id number] ICD Code: I50.20 - UNSPECIFIED SYSTOLIC (CONGESTIVE) HEART FAILURE Status: Chronic Priority: High Current Visit: Yes (2) Hypertensive cardiomegaly with heart failure SNOMED Code(s): 359232443, 360935362 ICD Code: I11.0 - HYPERTENSIVE HEART DISEASE WITH HEART FAILURE Status: Chronic Priority: High Current Visit: Yes (3) Hypertension SNOMED Code(s): 35773082 ICD Code: I10 - ESSENTIAL (PRIMARY) HYPERTENSION Status: Chronic Priority : High Current Visit: Yes Qualifiers: Hypertension type: essential hypertension Qualified Code(s): I10 - Essential (primary) hypertension - Patient Summary/Data Consults: Consultations 12/15/18 15:59 Consult to Physician [CONS] Routine Hospital Course: The patient is a 38-year-old gentleman who had been admitted to inpatient hospitalization secondary to congestive heart failure along with reduced ejection fraction. The patient was sent directly from his rehabilitation services aide office after 2-D echocardiogram showed an ejection fraction of 25-30%. Further weaning of the 2-D echocardiogram had shown that the patient also had severe mitral valve regurgitation. Further consultations with cardiology had recommended that the patient be transferred to tertiary care center where he can be evaluated for a transesophageal echocardiogram as well as evaluation for possible mitral valve repair and/or replacement. The patient was diuresed during his short course of hospitalization and subjectively the patient says that he feels a lot better. He no longer has shortness of breath. The patient had been monitored very closely with regards to his tachycardia and his last pulse rate was at 122 bpm. The patient had been slowly introduced to a beta mina to help reduce his pulse rate. The patient also has had mild elevation of his troponin going from normal 0.55-0.56-0.58 and this is thought to be secondary to demand ischemia. Further, a phone call to cardiac surgeon in [place] who indicated that the patient would be at extremely high risk for surgery at [place] and as a result of this he had been recommended to transfer to [facility]. The patient has an accepting physician as well as rehabilitation services aide. Accepting physician is hospitalist, Dr. Gandhi, and rehabilitation services aide is Dr. Moreau. The patient has been recommended to continue with heart healthy diet. He is sent on current medications. He is a discharged to acute hospitalization at [facility] and he'll be transported via ground ambulance. - Patient Instructions Diet: Heart Healthy Diet Fluid Restriction: 2000 mL Activity: As Tolerated - Discharge Plan *PRESCRIPTION DRUG MONITORING PROGRAM REVIEWED*: No *COPY OF PRESCRIPTION DRUG MONITORING REPORT IN PATIENT ANSELMO: No Home Medications: Home Meds RX: Lisinopril [Prinivil] 20 mg PO DAILY tablet 12/16/18 [Rx] RX: Metoprolol Succinate [Toprol XL] 25 mg PO DAILY tab.er 12/16/18 [Rx] Oxygen Therapy Mode: Room Air Patient Handouts: Hypertension, [place], Heart Failure, [id number] - Discharge Summary/Plan Comment DC Time >30 min.: Yes - General Info Date of Service: 12/16/18 Admission Dx/Problem (Free Text: Admission Diagnosis/Problem Admission Diagnosis/Problem Congestive heart failure, new onset. HTN Functional Status: Reports: Pain Controlled - Review of Systems General: Reports: No Symptoms HEENT: Reports: No Symptoms Pulmonary: Reports: No Symptoms Cardiovascular: Reports: Palpitations, Dyspnea on Exertion Gastrointestinal: Reports: No Symptoms Genitourinary: Reports: No Symptoms Musculoskeletal: Reports: No Symptoms Skin: Reports: No Symptoms Neurological: Reports: No Symptoms Psychiatric: Reports: No Symptoms - Patient Data Vitals - Most Recent: Last Vital Signs Temp 37.1 C 12/16/18 11:45 Pulse 122 H 12/16/18 11:45 Resp 16 12/16/18 11:45 BP 143/99 H 12/16/18 11:45 Pulse Ox 97 12/16/18 11:45 Weight - Most Recent: 76.884 kg I&O - Last 24 hours: Intake & Output 12/15/18 12/16/18 12/16/18 22:59 06:59 14:59 Intake Total 60 510 Output Total 1650 Balance 60 -1140 Lab Results - Last 24 hrs: Laboratory Results - last 24 hr 12/15/18 12/15/18 12/15/18 Range/Units 15:55 16:00 16:00 WBC 8.90 (4.0-11.0) K/uL RBC 3.95 L (4.50-5.90) M/uL Hgb 12.2 L (13.0-17.0) g/dL Hct 36.3 L (38.0-50.0) % MCV 91.9 (80.0-98.0) fL MCH 30.9 (27.0-32.0) pg MCHC 33.6 (31.0-37.0) g/dL RDW Std Deviation 44.1 (28.0-62.0) fl RDW Coeff of Mahendra 13 (11.0-15.0) % Plt Count 303 (150-400) K/uL MPV 10.00 (7.40-12.00) fL Neut % (Auto) 63.5 (48.0-80.0) % Lymph % (Auto) 30.4 (16.0-40.0) % Cecil % (Auto) 5.5 (0.0-15.0) % Eos % (Auto) 0.3 (0.0-7.0) % Baso % (Auto) 0.3 (0.0-1.5) % Neut # (Auto) 5.6 (1.4-5.7) K/uL Lymph # (Auto) 2.7 H (0.6-2.4) K/uL Cecil # (Auto) 0.5 (0.0-0.8) K/uL Eos # (Auto) 0.0 (0.0-0.7) K/uL Baso # (Auto) 0.0 (0.0-0.1) K/uL Nucleated RBC % 0.0 /100WBC Nucleated RBCs # 0 K/uL INR Sodium 142 (136-148) mmol/L Potassium 4.0 (3.5-5.1) mmol/L Chloride 107 (98-107) mmol/L Carbon Dioxide 24.6 (21.0-32.0) mmol/L BUN 15 (7.0-18.0) mg/dL Creatinine 1.3 (0.8-1.3) mg/dL Est Cr Clr Drug Dosing 64.51 mL/min Estimated GFR (MDRD) > 60.0 ml/min Glucose 103 (74-106) mg/dL Hemoglobin A1c (4.5-6.2) % Calcium 8.4 L (8.5-10.1) mg/dL Phosphorus 3.6 (2.6-4.7) mg/dL Magnesium 2.1 (1.8-2.4) mg/dL Total Bilirubin 0.3 (0.2-1.0) mg/dL AST 21 (15-37) IU/L ALT 31 (14-63) IU/L Alkaline Phosphatase 45 L (46-116) U/L Troponin I 0.055 (0.000-0.056) ng/mL B-Natriuretic Peptide (<100) PG/ML Total Protein 6.7 (6.4-8.2) g/dL Albumin 2.7 L (3.4-5.0) g/dL Globulin 4.0 (2.6-4.0) g/dL Albumin/Globulin Ratio 0.7 L (0.9-1.6) Triglycerides (0-200) mg/dL Cholesterol (50-200) mg/dL LDL Cholesterol, Calc (60-180) mg/dL VLDL Cholesterol (5-55) mg/dL HDL Cholesterol (40-60) mg/dL Cholesterol/HDL Ratio (3.3-6.0) TSH 3rd Generation 1.00 (0.36-3.74) uIU/mL 12/15/18 12/15/18 12/15/18 Range/Units 16:00 16:00 16:00 WBC (4.0-11.0) K/uL RBC (4.50-5.90) M/uL Hgb (13.0-17.0) g/dL Hct (38.0-50.0) % MCV (80.0-98.0) fL MCH (27.0-32.0) pg MCHC (31.0-37.0) g/dL RDW Std Deviation (28.0-62.0) fl RDW Coeff of Mahendra (11.0-15.0) % Plt Count (150-400) K/uL MPV (7.40-12.00) fL Neut % (Auto) (48.0-80.0) % Lymph % (Auto) (16.0-40.0) % Cecil % (Auto) (0.0-15.0) % Eos % (Auto) (0.0-7.0) % Baso % (Auto) (0.0-1.5) % Neut # (Auto) (1.4-5.7) K/uL Lymph # (Auto) (0.6-2.4) K/uL Cecil # (Auto) (0.0-0.8) K/uL Eos # (Auto) (0.0-0.7) K/uL Baso # (Auto) (0.0-0.1) K/uL Nucleated RBC % /100WBC Nucleated RBCs # K/uL INR 1.03 Sodium (136-148) mmol/L Potassium (3.5-5.1) mmol/L Chloride (98-107) mmol/L Carbon Dioxide (21.0-32.0) mmol/L BUN (7.0-18.0) mg/dL Creatinine (0.8-1.3) mg/dL Est Cr Clr Drug Dosing mL/min Estimated GFR (MDRD) ml/min Glucose (74-106) mg/dL Hemoglobin A1c 5.6 (4.5-6.2) % Calcium (8.5-10.1) mg/dL Phosphorus (2.6-4.7) mg/dL Magnesium (1.8-2.4) mg/dL Total Bilirubin (0.2-1.0) mg/dL AST (15-37) IU/L ALT (14-63) IU/L Alkaline Phosphatase (46-116) U/L Troponin I (0.000-0.056) ng/mL B-Natriuretic Peptide 264 H (<100) PG/ML Total Protein (6.4-8.2) g/dL Albumin (3.4-5.0) g/dL Globulin (2.6-4.0) g/dL Albumin/Globulin Ratio (0.9-1.6) Triglycerides (0-200) mg/dL Cholesterol (50-200) mg/dL LDL Cholesterol, Calc (60-180) mg/dL VLDL Cholesterol (5-55) mg/dL HDL Cholesterol (40-60) mg/dL Cholesterol/HDL Ratio (3.3-6.0) TSH 3rd Generation (0.36-3.74) uIU/mL 12/15/18 12/16/18 12/16/18 Range/Units 23:53 07:54 07:54 WBC (4.0-11.0) K/uL RBC (4.50-5.90) M/uL Hgb (13.0-17.0) g/dL Hct (38.0-50.0) % MCV (80.0-98.0) fL MCH (27.0-32.0) pg MCHC (31.0-37.0) g/dL RDW Std Deviation (28.0-62.0) fl RDW Coeff of Mahendra (11.0-15.0) % Plt Count (150-400) K/uL MPV (7.40-12.00) fL Neut % (Auto) (48.0-80.0) % Lymph % (Auto) (16.0-40.0) % Cecil % (Auto) (0.0-15.0) % Eos % (Auto) (0.0-7.0) % Baso % (Auto) (0.0-1.5) % Neut # (Auto) (1.4-5.7) K/uL Lymph # (Auto) (0.6-2.4) K/uL Cecil # (Auto) (0.0-0.8) K/uL Eos # (Auto) (0.0-0.7) K/uL Baso # (Auto) (0.0-0.1) K/uL Nucleated RBC % /100WBC Nucleated RBCs # K/uL INR Sodium 143 (136-148) mmol/L Potassium 4.1 (3.5-5.1) mmol/L Chloride 107 (98-107) mmol/L Carbon Dioxide 22.9 (21.0-32.0) mmol/L BUN 13 (7.0-18.0) mg/dL Creatinine 1.3 (0.8-1.3) mg/dL Est Cr Clr Drug Dosing 64.51 mL/min Estimated GFR (MDRD) > 60.0 ml/min Glucose 96 (74-106) mg/dL Hemoglobin A1c (4.5-6.2) % Calcium 8.5 (8.5-10.1) mg/dL Phosphorus (2.6-4.7) mg/dL Magnesium (1.8-2.4) mg/dL Total Bilirubin 0.8 (0.2-1.0) mg/dL AST 17 (15-37) IU/L ALT 28 (14-63) IU/L Alkaline Phosphatase 47 (46-116) U/L Troponin I 0.056 0.058 H* (0.000-0.056) ng/mL B-Natriuretic Peptide (<100) PG/ML Total Protein 6.5 (6.4-8.2) g/dL Albumin 2.9 L (3.4-5.0) g/dL Globulin 3.6 (2.6-4.0) g/dL Albumin/Globulin Ratio 0.8 L (0.9-1.6) Triglycerides 80 (0-200) mg/dL Cholesterol 212 H (50-200) mg/dL LDL Cholesterol, Calc 160 (60-180) mg/dL VLDL Cholesterol 16 (5-55) mg/dL HDL Cholesterol 36 L (40-60) mg/dL Cholesterol/HDL Ratio 5.9 (3.3-6.0) TSH 3rd Generation (0.36-3.74) uIU/mL 12/16/18 Range/Units 07:54 WBC 8.03 (4.0-11.0) K/uL RBC 4.17 L (4.50-5.90) M/uL Hgb 12.9 L (13.0-17.0) g/dL Hct 37.7 L (38.0-50.0) % MCV 90.4 (80.0-98.0) fL MCH 30.9 (27.0-32.0) pg MCHC 34.2 (31.0-37.0) g/dL RDW Std Deviation 43.3 (28.0-62.0) fl RDW Coeff of Mahendra 13 (11.0-15.0) % Plt Count 327 (150-400) K/uL MPV 10.30 (7.40-12.00) fL Neut % (Auto) 63.5 (48.0-80.0) % Lymph % (Auto) 28.4 (16.0-40.0) % Cecil % (Auto) 7.7 (0.0-15.0) % Eos % (Auto) 0.2 (0.0-7.0) % Baso % (Auto) 0.2 (0.0-1.5) % Neut # (Auto) 5.1 (1.4-5.7) K/uL Lymph # (Auto) 2.3 (0.6-2.4) K/uL Cecil # (Auto) 0.6 (0.0-0.8) K/uL Eos # (Auto) 0.0 (0.0-0.7) K/uL Baso # (Auto) 0.0 (0.0-0.1) K/uL Nucleated RBC % 0.0 /100WBC Nucleated RBCs # 0 K/uL INR Sodium (136-148) mmol/L Potassium (3.5-5.1) mmol/L Chloride (98-107) mmol/L Carbon Dioxide (21.0-32.0) mmol/L BUN (7.0-18.0) mg/dL Creatinine (0.8-1.3) mg/dL Est Cr Clr Drug Dosing mL/min Estimated GFR (MDRD) ml/min Glucose (74-106) mg/dL Hemoglobin A1c (4.5-6.2) % Calcium (8.5-10.1) mg/dL Phosphorus (2.6-4.7) mg/dL Magnesium (1.8-2.4) mg/dL Total Bilirubin (0.2-1.0) mg/dL AST (15-37) IU/L ALT (14-63) IU/L Alkaline Phosphatase (46-116) U/L Troponin I (0.000-0.056) ng/mL B-Natriuretic Peptide (<100) PG/ML Total Protein (6.4-8.2) g/dL Albumin (3.4-5.0) g/dL Globulin (2.6-4.0) g/dL Albumin/Globulin Ratio (0.9-1.6) Triglycerides (0-200) mg/dL Cholesterol (50-200) mg/dL LDL Cholesterol, Calc (60-180) mg/dL VLDL Cholesterol (5-55) mg/dL HDL Cholesterol (40-60) mg/dL Cholesterol/HDL Ratio (3.3-6.0) TSH 3rd Generation (0.36-3.74) uIU/mL Med Orders - Current: Current Medications Acetaminophen (Tylenol) 650 mg PO Q4H PRN PRN Reason: Pain (Mild 1-3)/fever Albuterol (Ventolin Hfa) 8 gm INH Q6H PRN PRN Reason: Shortness of Breath Benzocaine/Menthol (Cepacol Sore Throat) 1 lozenge MUCMEM Q2H PRN PRN Reason: Sore Throat Last Admin: 12/15/18 21:01 Dose: 1 lozenge Docusate Sodium (Colace) 100 mg PO BID PRN PRN Reason: Constipation Furosemide (Lasix) 40 mg IVPUSH BID [facility] Last Admin: 12/16/18 08:27 Dose: 40 mg Heparin Sodium (Porcine) (Heparin Sodium) 5,000 units SUBCUT Q12H [facility] Last Admin: 12/16/18 03:38 Dose: 5,000 units Lisinopril (Prinivil) 20 mg PO DAILY [facility] Last Admin: 12/16/18 08:33 Dose: 20 mg Metoprolol Succinate (Toprol Xl) 25 mg PO DAILY [facility] Last Admin: 12/16/18 08:34 Dose: 25 mg Morphine Sulfate (Morphine) 2 mg IVPUSH Q2H PRN PRN Reason: Pain (severe 7-10) Stop: 12/16/18 16:05 Ondansetron HCl (Zofran Odt) 4 mg PO Q4H PRN PRN Reason: nausea, able to take PO Oxycodone HCl (Oxycodone) 5 mg PO Q4H PRN PRN Reason: Pain (moderate 4-6) Sodium Chloride (Saline Flush) 10 ml FLUSH ASDIRECTED PRN PRN Reason: Keep Vein Open Sodium Chloride (Saline Flush) 2.5 ml FLUSH ASDIRECTED PRN PRN Reason: Keep Vein Open Temazepam (Restoril) 15 mg PO BEDTIME PRN PRN Reason: Sleep Discontinued Medications Heparin Sodium (Porcine) (Heparin Sodium) 5,000 units SUBCUT Q8H [facility] Last Admin: 12/15/18 19:48 Dose: Not Given Lisinopril (Prinivil) 10 mg PO DAILY [facility] Last Admin: 12/15/18 16:06 Dose: 10 mg - Exam Quality Assessment: Denies: Supplemental Oxygen General: Reports: Alert, Oriented, Cooperative, No Acute Distress HEENT: Reports: Pupils Equal, Pupils Reactive, EOMI, Mucous Membr. Moist/[place] Neck: Reports: Supple, Trachea Midline, No JVD Lungs: Reports: Clear to Auscultation, Normal Respiratory Effort Cardiovascular: Reports: Irregular Rhythm, Tachycardia, Murmurs (Diastolic rumble). Denies: Regular Rate GI/Abdominal Exam: Normal Bowel Sounds, Soft, Non-Tender, No Distention (Male) Exam: Deferred Rectal (Males) Exam: Deferred Back Exam: Reports: Normal Inspection, Full Range of Motion Extremities: Normal Inspection, Normal Range of Motion, Non-Tender, No Pedal Edema, Normal Capillary Refill Skin: Reports: Warm, Dry, Intact Neurological: Reports: No New Focal Deficit Psy/Mental Status: Reports: Alert, Normal Affect, Normal Mood
--- NOTE | 2018-12-20 13:17 | ECHO ---
EXAM DATE: 12/15/18 PATIENT'S AGE: 38 The echocardiogram report can be seen in this patient's EMR (Electronic Medical Record) in the Reports section. The report has also been scanned into PACs. MIRIAM
== END 2018-12-16 18:10 ==
LOC: INTOOBSV 15:30 → MW.MS 15:30
PROVIDERS: ADMIT Internal Medicine; ATTEND Internal Medicine
DX: I11.0 Hypertensive heart disease with heart failure (principal); I50.22 Chronic systolic (congestive) heart failure; F17.210 Nicotine dependence, cigarettes, uncomplicated; Z79.899 Other long term (current) drug therapy
CPT/HCPCS: 36415; 80053; 80061; 83036; 83735; 83880; 84100; 84443; 84484; 85025; 85610; 93306; 96372; 96374; 96376; A9270; G0378; G0379; J1644; J1940

== ENCOUNTER 2019-09-02 12:51 | Emergency (ER) | payer SELFPAY ==
[2019-09-02 13:31] LABS: BLOOD UREA NITROGEN,BUN 23 mg/dL (7.0-18.0); CARBON DIOXIDE,CO2 24.5 mmol/L (21.0-32.0); CHLORIDE,CL 101 mmol/L (98-107); GLUCOSE RANDOM 139 mg/dL (74-106); SODIUM,NA 137 mmol/L (136-148)
--- NOTE | 2019-09-02 14:02 | CR ---
INDICATION: CHF; chest tightness INDICATION: CHF. Chest tightness. TECHNIQUE: Chest 2 views. COMPARISON: 12/14/2018. FINDINGS: Cardiovascular and mediastinum: Heart size and vasculature are normal in caliber and appearance. Mediastinum is within normal limits. Lungs and pleural spaces: Lungs are clear. No sign of infiltrate or mass. No sign of pleural effusion. No pneumothorax. Bones and soft tissues: No significant findings. IMPRESSION: Lungs are clear. Dictated by Tre Fernandes MD @ 09/02/2019 2:01:46 PM Dictated by: Tre Fernandes MD @ 09/02/2019 14:01:53 (Electronically Signed)
--- NOTE | 2019-09-02 16:08 | EDM.PDOC ---
ED [facility] GENERAL MEDICAL PROBLEM - General Chief Complaint: Chest Pain Stated Complaint: HEART COMPLAINT Time Seen by Provider: 09/02/19 16:07 - History of Present Illness INITIAL COMMENTS - FREE TEXT/NARRATIVE: HPI 39-year-old male with history of severe mitral valve regurgitation, HTN cardiomegaly with heart failure, congestive heart failure, and ACS presents for evaluation of crampy recurrent poorly characterized right-sided chest pain of several hours duration. No identifiable provoking or relieving factors. Pain accompanied by mild paresthesias (now resolved) of the right hand. Patient denies recent immobilization, leg trauma, estrogen use, surgery in the last four weeks, hemoptysis, or malignancy in the last 6 months. Discharge summary dated 12/16/18 reviewed and notable for: * EF 25-30%. Severe mitral valve regurgitation. * Patient diuresed with improvement in symptoms, transfer to an outside hospital for SAMUEL and consideration of surgery (patient states that surgery was not indicated). Outside records reviewed and notable for: * SAMUEL: EF ~25%. Mitral valve leaflet thickening with mild prolapse involving the anterior leaflet. Severe mitral regurgitation. There is malcoaptation of the mitral valve leaflets. No significant pericardial effusion. *Nuclear medicine stress test: normal study with an apparent partially reversible perfusion abnormalities in the base to mid anterior wall. While this may represent a non-coronary distribution, the fact that appear better on the resting images is still concerning for reversible ischemia. Significant LV dysfunction with a calculated ejection fraction of 19% with global hypokinesis. Nondiagnostic ECG component of the test due to the pharmacologic nature of the stress. * Left heart catheterization: no angiographic evidence for coronary artery disease. * Discharge summary: acute systolic CHF, improved, stable. Nonischemic cardiomyopathy with reduced LV function, EF 25%. Severe mitral regurgitation. Hypertensive cardiomegaly. Poorly controlled hypertension, now well controlled. M/S/F/SocHx notable for: please see HPI; remainder reviewed with patient and in chart. ROS: Negative constitutional, eye, cardiovascular, pulmonary, GI, , MSK, skin , neurologic, psychiatric, endocrine unless noted in the HPI. Exam HR 100, RR 20, BP 153/124, T 36.7C, SaO2 90% on room air. Gen: Pleasant, non-toxic appearing, resting comfortably.] HEENT: NC, AT, PEERL, EOMI. Resp: Clear to auscultation bilaterally, normal work of breathing. Card: RRR with no M/R/G, no crackles in lung bases, no pedal edema, no JVD appreciated. GI: NT/ND Vascular: Both ankles, calves, and thighs of equal size, no calf tenderness to palpation bilaterally. MSK: No chest wall TTP. No visible deformities, strength and tone WNL. Skin: Normal color with no visible lesions. Neuro: alert and oriented 3, no facial asymmetry, vision and hearing WNL. Psych: Mood and affect appropriate. Focused Cardiac Ultrasound Indication: Resuscitation Exam type (limited): Initial Views obtained: parasternal long, parasternal short, apical four chamber view, subxiphoid, subxiphoid long-axis view of the IVC. Findings: No pericardial effusion, parasternal short axis without flattening of the intraventricular septum, apical four without RV dilatation or septal bowing , IVC with approximately 40% respiratory variation. Focused Thoracic Ultrasound Indication: (Shortness of breath vs hypoxemia vs trauma) Exam type (limited): Initial Views obtained: Right anterior chest, zone 1 and 2, [left anterior chest, zone 1 and 2. Left and right hemidiaphragms (zone 4). Right Zone 1: Lung sliding, present, B-Lines =<3, consolidation none, no effusion. Right Zone 2: Lung sliding, present, B-Lines =<3, consolidation none, no effusion. Right Hemidiaphragm: Lung sliding, present, B-Lines ~3, consolidation none, no effusion. Left Zone 1: Lung sliding, present, B-Lines =<3, consolidation none, no effusion. Left Zone 2: Lung sliding, present, B-Lines =<3, consolidation none, no effusion. Left Hemidiaphragm: Lung sliding, present, B-Lines ~3, consolidation none, no effusion. Labs / Imaging (pertinent): WBC 8.39, Hb 15.9, Na 137, K 4.0, AST 35, ALT 94, alkaline phosphatase 66. Troponin (1 PM) <0.050, (3:07 PM) <0.050 BNP 11 d-dimer 0.28 EKG: SR at 101 bpm, no OR segment depressions, no new ST segment changes, new LBBB, or T-wave changes that would suggest acute ischemia. CXR: lungs are clear. MDM Previous chart, nursing note, and vitals reviewed. A: 39-year-old male with history of severe mitral valve regurgitation, HTN cardiomegaly with heart failure, congestive heart failure, and ACS presents for evaluation of crampy recurrent poorly characterized right-sided chest pain of several hours duration. DDx: ACS, unstable angina, pericarditis, myocarditis, dissection, PE, mediastinal air, pneumothorax, MSK, endocarditis, GI (GERD, gastritis, esophageal rupture, esophageal spasm). Evaluation: the cause of the patients recurrent crampy right sided chest pain is currently of unclear etiology, however a musculoskeletal cause is favored. The patient has baseline cardiovascular disease, however a coronary angiogram earlier this year (please see above) was without evidence of coronary artery disease, his cereal negative troponins, and his ECG is without evidence of ischemia, pericarditis, myocarditis. There are no features suggestive of a pericardial effusion, pleural effusion, pneumothorax, mediastinal widening, features suggestive of dissection, and the patient has a negative d-dimer ( which in the context of a low pretest probability for PE) effectively excludes/ appropriately risk stratifies this etiology. The patient is also without evidence of signs of heart failure (chest x-ray, [id number] ultrasound, and normal BNP). Recommend continued medication compliance and PCP and cardiology follow-up within 48 hours. Return to care precautions provided. ED Course: Vital signs remained stable and within clinically acceptable limits. Disposition: Discharge with PCP follow up. Return to care precautions given verbally and in writing. Impression: Chest Pain. (please reference below for remainder of encounter information) Aaron (Signs & Sx of DVT - 0, PE is #1 or equally likelihood - 0, HR > 100 - 1.5, immobilization of >=3 days or surgery in last 28 days - 0, prior DVT or PE - 0, hemoptysis - 0, malignancy w/ tx in last 6 mo or palliative - 0) 1.5. chest pain Pain Score (Numeric/FACES): 5 - Related Data Allergies Allergy/AdvReac Type Severity Reaction Status Date / Time No Known Allergies Allergy Verified 09/02/19 12:59 Home Meds: Home Meds Furosemide [Lasix] 40 mg PO ASDIRECTED PRN 09/02/19 [History] Isosorbide Mononitrate [Isosorbide Mononitrate ER] 30 mg PO DAILY 09/02/19 [ History] Metoprolol Succinate 200 mg PO DAILY 09/02/19 [History] Spironolactone 50 mg PO DAILY 09/02/19 [History] hydrALAZINE [Apresoline] 10 mg PO TID 09/02/19 [History] lisinopriL [Prinivil] 40 mg PO DAILY 09/02/19 [History] Past Medical History HEENT History: Reports: None Cardiovascular History: Reports: Hypertension Respiratory History: Reports: None Gastrointestinal History: Reports: None Genitourinary History: Reports: None Musculoskeletal History: Reports: None Neurological History: Reports: None Psychiatric History: Reports: None Endocrine/Metabolic History: Reports: None Hematologic History: Reports: None Immunologic History: Reports: None Oncologic (Cancer) History: Reports: None Dermatologic History: Reports: None - Infectious Disease History Infectious Disease History: Reports: None - Past Surgical History Head Surgeries/Procedures: Reports: None Social & Family History - Family History Family Medical History: Noncontributory - Tobacco Use Smoking Status *Q: Never Smoker - Caffeine Use Caffeine Use: Reports: Energy Drinks - Living Situation & Occupation Living situation: Reports: , with Spouse, with Family Occupation: Employed ED ROS GENERAL - Review of Systems Review Of Systems: See Below ED EXAM, GENERAL - Physical Exam Exam: See Below Course - Vital Signs Last Recorded V/S: Last Vital Signs Temp 36.7 C 09/02/19 12:55 Pulse 84 09/02/19 15:15 Resp 21 H 09/02/19 15:15 BP 156/108 H 09/02/19 15:15 Pulse Ox 98 09/02/19 15:15 - Orders/Labs/Meds Orders: Active Orders 24 hr Category Date Time Status EKG Documentation Completion [RC] STAT Care 09/02/19 13:06 Active Labs: Laboratory Tests 09/02/19 09/02/19 09/02/19 Range/Units 13:00 13:00 13:00 WBC 8.39 (4.0-11.0) K/uL RBC 4.93 (4.50-5.90) M/uL Hgb 15.9 (13.0-17.0) g/dL Hct 45.0 (38.0-50.0) % MCV 91.3 (80.0-98.0) fL MCH 32.3 H (27.0-32.0) pg MCHC 35.3 (31.0-37.0) g/dL RDW Std Deviation 43.2 (28.0-62.0) fl RDW Coeff of Mahendra 13 (11.0-15.0) % Plt Count 274 (150-400) K/uL MPV 10.70 (7.40-12.00) fL Neut % (Auto) 49.0 (48.0-80.0) % Lymph % (Auto) 41.8 H (16.0-40.0) % Fisher % (Auto) 8.2 (0.0-15.0) % Eos % (Auto) 0.5 (0.0-7.0) % Baso % (Auto) 0.5 (0.0-1.5) % Neut # (Auto) 4.1 (1.4-5.7) K/uL Lymph # (Auto) 3.5 H (0.6-2.4) K/uL Fisher # (Auto) 0.7 (0.0-0.8) K/uL Eos # (Auto) 0.0 (0.0-0.7) K/uL Baso # (Auto) 0.0 (0.0-0.1) K/uL Nucleated RBC % 0.0 /100WBC Nucleated RBCs # 0 K/uL D-Dimer, Quantitative (0.0-0.50) mg/L FEU Sodium 137 (136-148) mmol/L Potassium 4.0 (3.5-5.1) mmol/L Chloride 101 (98-107) mmol/L Carbon Dioxide 24.5 (21.0-32.0) mmol/L BUN 23 H (7.0-18.0) mg/dL Creatinine 1.0 (0.8-1.3) mg/dL Est Cr Clr Drug Dosing TNP Estimated GFR (MDRD) > 60.0 ml/min Glucose 139 H (74-106) mg/dL Calcium 9.1 (8.5-10.1) mg/dL Total Bilirubin 0.4 (0.2-1.0) mg/dL AST 35 (15-37) IU/L ALT 94 H (14-63) IU/L Alkaline Phosphatase 66 (46-116) U/L Troponin I < 0.050 (0.000-0.056) ng/mL B-Natriuretic Peptide 11 (<100) PG/ML Total Protein 8.4 H (6.4-8.2) g/dL Albumin 4.3 (3.4-5.0) g/dL Globulin 4.1 H (2.6-4.0) g/dL Albumin/Globulin Ratio 1.1 (0.9-1.6) 09/02/19 09/02/19 Range/Units 13:00 15:07 WBC (4.0-11.0) K/uL RBC (4.50-5.90) M/uL Hgb (13.0-17.0) g/dL Hct (38.0-50.0) % MCV (80.0-98.0) fL MCH (27.0-32.0) pg MCHC (31.0-37.0) g/dL RDW Std Deviation (28.0-62.0) fl RDW Coeff of Mahendra (11.0-15.0) % Plt Count (150-400) K/uL MPV (7.40-12.00) fL Neut % (Auto) (48.0-80.0) % Lymph % (Auto) (16.0-40.0) % Fisher % (Auto) (0.0-15.0) % Eos % (Auto) (0.0-7.0) % Baso % (Auto) (0.0-1.5) % Neut # (Auto) (1.4-5.7) K/uL Lymph # (Auto) (0.6-2.4) K/uL Fisher # (Auto) (0.0-0.8) K/uL Eos # (Auto) (0.0-0.7) K/uL Baso # (Auto) (0.0-0.1) K/uL Nucleated RBC % /100WBC Nucleated RBCs # K/uL D-Dimer, Quantitative 0.28 (0.0-0.50) mg/L FEU Sodium (136-148) mmol/L Potassium (3.5-5.1) mmol/L Chloride (98-107) mmol/L Carbon Dioxide (21.0-32.0) mmol/L BUN (7.0-18.0) mg/dL Creatinine (0.8-1.3) mg/dL Est Cr Clr Drug Dosing Estimated GFR (MDRD) ml/min Glucose (74-106) mg/dL Calcium (8.5-10.1) mg/dL Total Bilirubin (0.2-1.0) mg/dL AST (15-37) IU/L ALT (14-63) IU/L Alkaline Phosphatase (46-116) U/L Troponin I < 0.050 (0.000-0.056) ng/mL B-Natriuretic Peptide (<100) PG/ML Total Protein (6.4-8.2) g/dL Albumin (3.4-5.0) g/dL Globulin (2.6-4.0) g/dL Albumin/Globulin Ratio (0.9-1.6) Departure - Departure Time of Disposition: 16:07 Disposition: Home, Self-Care 01 Clinical Impression: Chest pain - Discharge Information Referrals: PCP,Unknown [Primary Care Provider] - Additional Instructions: You were in seen in the [facility] Emergency Department for evaluation of chest pain. Please read and follow all of the instructions below. Please follow up with your primary care physician and your manager of distribution within 48 hours. When calling for follow-up care, please make the office aware that this follow-up is from your recent emergency room visit. If for any reason you are refused follow-up, please contact the [facility] Emergency Department at and asked to speak to the emergency department charge nurse. Your care today was limited to identifying and treating emergent medical problems only. Many people have subtle differences in their test results that require follow up with their outpatient physician(s) to correctly determine if this represents a normal variation or concerning abnormality with respect to your specific health. The care given to you today was limited to identifying and treating emergent medical problems - you need to request a copy of all of your medical records from today's visit and follow up with your outpatient physician(s) to review both today's visit and your overall health. If you have any new symptoms or if you are at all concerned about your health please return immediately to the emergency department. Prescriptions: If you are uninsured or have financial difficulties with filling your prescription(s), you may consider using a free pharmacy discount service such as [facility] (LOANZ) or [employer] (Leho). These services allow you to search for a medication on your phone (or computer) and obtain a coupon that usually has a significant discount from the list dubois at a pharmacy. Your physician as well as [facility] does not have a financial relationship with either of these services. You may also wish to speak with your physician to determine if lower cost prescriptions are possible. Obtaining primary care: 1. [facility] provides pediatrics (children), family medicine (children, adults, and some obstetrical care), and internal medicine (adults). Further specialty care is also available. Same day appointments are available. They may be contacted at [phone] and are open Wednesday through Wednesday 8 AM to 5 PM. The [facility] are located at [facility], [address] [place] [address]. 2. [facility] offers family medicine, internal medicine, womens health, and further specialty care. [facility] may be contacted at [phone]. [facility] is located at [address]. [facility] [address]. 3. If you have health insurance, please also contact your insurer for a list of accepting providers under your policy, you may contact these providers for further health care. Occupational health: Work related injuries may consider following up with [facility], . Occupational health services are located at [address] [place] [address] and are open Wednesday through Wednesday from 7: 30 am to 5:00 pm. Obstetrical and Gynecological Care: [facility], , Wednesday through Wednesday 8 AM to 5 PM. [address] [address]. Eyecare: If you have an eye injury you should follow up with your video conference specialist or with [facility], at [phone] or [phone] , they are located at [address] [place] [address]. Chest Pain of Unclear Cause You have been seen for chest pain. The cause of your pain is not yet known. Your doctor has learned about your medical history, examined you, and checked any tests that were done. Still, it is unclear why you are having pain. The doctor thinks there is only a very small chance that your pain is caused by a life-threatening condition. Later, your primary care doctor might do more tests or check you again. Sometimes chest pain is caused by a dangerous condition, like a heart attack, aorta injury, blood clot in the lung, or collapsed lung. It is unlikely that your pain is caused by a life-threatening condition if: Your chest pain lasts only a few seconds at a time; you are not short of breath, nauseated (sick to your stomach), sweaty, or lightheaded; your pain gets worse when you twist or bend; your pain improves with exercise or hard work. Chest pain is serious. It is VERY IMPORTANT that you follow up with your regular doctor and seek medical attention immediately here or at the nearest Emergency Department if your symptoms become worse or they change. YOU SHOULD SEEK MEDICAL ATTENTION IMMEDIATELY, EITHER HERE OR AT THE NEAREST EMERGENCY DEPARTMENT, IF ANY OF THE FOLLOWING OCCURS: Your pain gets worse. Your pain makes you short of breath, nauseated, or sweaty. Your pain gets worse when you walk, go up stairs, or exert yourself. You feel weak, lightheaded, or faint. It hurts to breathe. Your leg swells. Your symptoms get worse or you have new symptoms or concerns. Sepsis Event Note - Evaluation Sepsis Screening Result: No Definite Risk - Focused Exam Vital Signs: Vital Signs Temp Pulse Resp BP Pulse Ox 09/02/19 15:15 84 21 H 156/108 H 98 09/02/19 14:00 88 20 163/106 H 96 09/02/19 13:10 97 15 159/107 H 96 09/02/19 12:55 36.7 C 100 20 153/124 H 98 Date Exam was Performed: 09/02/19 Time Exam was Performed: 16:07 - My Orders Last 24 Hours: My Active Orders 09/02/19 13:06 EKG Documentation Completion [RC] STAT - Assessment/Plan Last 24 Hours: My Active Orders 09/02/19 13:06 EKG Documentation Completion [RC] STAT
[2019-09-02 16:17] VITALS: BP 142/105; PULSE 80
== END 2019-09-02 16:17 | disposition home or self-care (01) ==
LOC: MW.ED 12:51
DX: R07.9 Chest pain, unspecified (principal); I10 Essential (primary) hypertension; Z79.899 Other long term (current) drug therapy
CPT/HCPCS: 36415; 71046; 71046-26; 80053; 83880; 84484; 85025; 85379; 93005; 99285-25

== ENCOUNTER 2020-04-27 20:16 | Emergency (ER) | payer MEDICAID ==
--- NOTE | 2020-04-27 20:46 | EDM.PDOC ---
ED HPI GENERAL MEDICAL PROBLEM - General Chief Complaint: Lower Extremity Injury/Pain Stated Complaint: ANKLE INJURY Time Seen by Provider: 04/27/20 20:18 Source of Information: Reports: Patient History Limitations: Reports: No Limitations - History of Present Illness INITIAL COMMENTS - FREE TEXT/NARRATIVE: HISTORY AND PHYSICAL: History of present illness: Patient is a 40-year-old male who presents to the emergency room with complaints of anterior right foot and ankle pain. He states pain has been intermittent over the past few days. 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 Denies any injury, trauma or falls. Denies any numbness, tingling or weakness of the extremity. No history of diabetes. No history of gout. Has not noticed any redness, swelling or lesions. He offers no systemic complaints. Review of systems: As per history of present illness and below otherwise all systems reviewed and negative. Past medical history: As per history of present illness and as reviewed below otherwise noncontributory. Surgical history: As per history of present illness and as reviewed below otherwise noncontributory. Social history: See social history for further information Family history: As per history of present illness and as reviewed below otherwise noncontributory. Physical exam: General: Well developed and well nourished 40-year-old -[place] male. Alert and orientated x 3. Nontoxic in appearance and in no acute distress. Vital signs are stable and have been reviewed by me. Nursing notes were reviewed. HEENT: Atraumatic, normocephalic, pupils equal and reactive bilaterally, negative for conjunctival pallor or scleral icterus, mucous membranes moist, TMs normal bilaterally, throat clear, neck supple, nontender, trachea midline. No drooling or trismus noted. No meningeal signs. No hot potato voice noted. Lungs: Clear to auscultation, breath sounds equal bilaterally, chest nontender. Normal work of breathing, no accessory muscles used. Heart: S1S2, regular rate and rhythm without overt murmur Abdomen: Soft, nondistended, nontender. Skin: Intact, warm, dry. No lesions or rashes noted. Hematologic: No petechiae or purpra. Mucosa appropriate color and normal nail bed color and refill. Extremities: Atraumatic, moves all extremities per self without difficulty or deficits. Has pain with palpation to the mid dorsal aspect of right foot into the arch and into the medial malleolus. Negative for cords or calf pain. Neurovascular unremarkable. Neuro: Awake, alert, oriented. Cranial nerves II through XII unremarkable. Cerebellum unremarkable. Motor and sensory unremarkable throughout. Exam nonfocal. Notes: Flatfoot is noted on x-ray. No acute fracture or dislocation. Patient states he is not able to take Tylenol due to his implanted device. He is able to take NSAIDs without any problems although he has not taken any at home. We discussed signs and symptoms that would prompt them to return to the Emergency Department. Medication, follow up and supportive care measures were reviewed and discussed. Voices understanding and is agreeable to plan of care. Denies any further questions or concerns at this time. Diagnostics: Foot and ankle x-ray Therapeutics: Wong wrap Prescription: Diclofenac Impression: Foot sprain Plan: 1. X-ray shows pes planus (flat foot) which can cause pain in the heel and arch area. Treatment includes arch supports for shoes, stretching and good supportive shoes while at work. Rest, ice, elevate the affected extremity. Please wear the splint as directed. 2. Ibuprofen as needed for pain management. 3. Follow up with the Orthopedic provider as we discussed. Return to the ED as needed and as discussed. Definitive disposition and diagnosis as appropriate pending reevaluation and review of above. R ankle Pain Score (Numeric/FACES): 7 - Related Data Allergies Allergy/AdvReac Type Severity Reaction Status Date / Time No Known Allergies Allergy Verified 09/02/19 12:59 Home Meds: Home Meds Furosemide [Lasix] 40 mg PO ASDIRECTED PRN 09/02/19 [History] Isosorbide Mononitrate [Isosorbide Mononitrate ER] 30 mg PO DAILY 09/02/19 [History] Metoprolol Succinate 200 mg PO DAILY 09/02/19 [History] Spironolactone 50 mg PO DAILY 09/02/19 [History] hydrALAZINE [Apresoline] 10 mg PO TID 09/02/19 [History] lisinopriL [Prinivil] 40 mg PO DAILY 09/02/19 [History] Past Medical History HEENT History: Reports: None Cardiovascular History: Reports: Automatic Implantable Cardioverter Defibrillators, Hypertension Respiratory History: Reports: None Gastrointestinal History: Reports: None Genitourinary History: Reports: None Musculoskeletal History: Reports: None Neurological History: Reports: None Psychiatric History: Reports: None Endocrine/Metabolic History: Reports: None Hematologic History: Reports: None Immunologic History: Reports: None Oncologic (Cancer) History: Reports: None Dermatologic History: Reports: None - Infectious Disease History Infectious Disease History: Reports: None - Past Surgical History Head Surgeries/Procedures: Reports: None Social & Family History - Family History Family Medical History: Noncontributory - Caffeine Use Caffeine Use: Reports: Energy Drinks - Recreational Drug Use Recreational Drug Use: No - Living Situation & Occupation Living situation: Reports: , with Spouse, with Family Occupation: Employed Review of Systems - Review of Systems Review Of Systems: Comprehensive ROS is negative, except as noted in HPI. ED EXAM, GENERAL - Physical Exam Exam: See Below Course - Vital Signs Last Recorded V/S: Last Vital Signs Temp 97.6 F 04/27/20 20:25 Pulse 109 H 04/27/20 20:25 Resp 20 04/27/20 20:25 BP 150/92 H 04/27/20 20:25 Pulse Ox 98 04/27/20 20:25 - Orders/Labs/Meds Orders: Active Orders 24 hr Category Date Time Status DME for Discharge [COMM] Stat Oth 04/27/20 21:07 Ordered Meds: Medications Discontinued Medications Generic Name Dose Route Start Last Admin Trade Name Stanton PRN Reason Stop Dose Admin Tramadol HCl 50 mg 04/27/20 21:04 04/27/20 21:12 Ultram PO 04/27/20 21:05 50 mg ONETIME ONE Administration Departure - Departure Time of Disposition: 21:43 Disposition: Home, Self-Care 01 Clinical Impression: Foot sprain Qualifiers: Encounter type: initial encounter Laterality: left Qualified Code(s): S93.602A - Unspecified sprain of left foot, initial encounter Pes planus Qualifiers: Laterality: unspecified laterality Qualified Code(s): M21.40 - Flat foot [pes planus] (acquired), unspecified foot - Discharge Information Instructions: Flat Feet, Adult, Foot Sprain Referrals: PCP,None [Primary Care Provider] - Forms: ED Department Discharge Additional Instructions: The following information is given to patients seen in the emergency department who are being discharged to home. This information is to outline your options for follow-up care. We provide all patients seen in our emergency department with a follow-up referral. The need for follow-up, as well as the timing and circumstances, are variable depending upon the specifics of your emergency department visit. If you don't have a primary care physician on staff, we will provide you with a referral. We always advise you to contact your personal physician following an emergency department visit to inform them of the circumstance of the visit and for follow-up with them and/or the need for any referrals to a consulting specialist. The emergency department will also refer you to a specialist when appropriate. This referral assures that you have the opportunity for follow-up care with a specialist. All of these measure are taken in an effort to provide you with optimal care, which includes your follow-up. Under all circumstances we always encourage you to contact your private physician who remains a resource for coordinating your care. When calling for follow-up care, please make the office aware that this follow-up is from your recent emergency room visit. If for any reason you are refused follow-up, please contact the [facility] Emergency Department at and asked to speak to the emergency department charge nurse. [facility] [address] [place] [address] [place] [address] Thank you for choosing the [facility] emergency department in [place] for your medical needs today. It was a pleasure caring for you. Today you were seen in the emergency department for foot and ankle pain. 1. X-ray shows pes planus (flat foot) which can cause pain in the heel and arch area. Treatment includes arch supports for shoes, stretching and good supportive shoes while at work. Rest, ice, elevate the affected extremity. Please wear the splint as directed. 2. Ibuprofen as needed for pain management. 3. Follow up with the Orthopedic provider as we discussed. Return to the ED as needed and as discussed. Sepsis Event Note (ED) - Evaluation Sepsis Screening Result: No Definite Risk - Focused Exam Vital Signs: Vital Signs Temp Pulse Resp BP Pulse Ox 04/27/20 20:25 97.6 F 109 H 20 150/92 H 98 - My Orders Last 24 Hours: My Active Orders 04/27/20 21:07 DME for Discharge [COMM] Stat - Assessment/Plan Last 24 Hours: My Active Orders 04/27/20 21:07 DME for Discharge [COMM] Stat
[2020-04-27] MEDS ORDERED: traMADol 50 MG Tab PO ONE (21:04)
--- NOTE | 2020-04-27 21:39 | CR ---
Indication: Right foot pain. Technique: Right foot 2 views Comparison: None Findings: Bones: Decreased calcaneal inclination angle. No fractures or bone lesions. Joint spaces: Joint spaces are well maintained. No degenerative changes. Soft tissues: Unremarkable. Impression: Pes planus. No fracture. Dictated by Len Maxewll MD @ Apr 27 2020 9:36PM Signed by Dr. Len Maxwell @ Apr 27 2020 9:38PM
--- NOTE | 2020-04-27 21:39 | CR ---
Indication: Right ankle pain Technique: Right ankle 3 views Comparison: None Findings: Bones: Pes planus. No fractures or bone lesions. Joint spaces: Joint spaces are well maintained. No degenerative changes. Soft tissues: Unremarkable. Impression: Pes planus. No fracture. Dictated by Len Maxwell MD @ Apr 27 2020 9:38PM Signed by Dr. Len Maxwell @ Apr 27 2020 9:38PM
[2020-04-28 05:29] VITALS: BP 142/82; PULSE 94
== END 2020-04-27 22:21 | disposition home or self-care (01) ==
LOC: MW.ED 20:16
DX: S93.601A Unspecified sprain of right foot, initial encounter (principal); I10 Essential (primary) hypertension; M21.41 Flat foot [pes planus] (acquired), right foot; X58.XXXA Exposure to other specified factors, initial encounter
CPT/HCPCS: 73610; 73620; 99283; A9270

== ENCOUNTER 2020-07-13 21:01 | Emergency (ER) | payer MEDICAID ==
[2020-07-13] MEDS ORDERED: Sodium Chloride 0.9% 1,000 ML IV ONE (21:44)
[2020-07-13] MEDS ORDERED: diphenhydrAMINE 50 MG/ML SDV IVPUSH ONE (21:45)
--- NOTE | 2020-07-13 21:52 | EDM.PDOC ---
<Michael Chaidez - Last Filed: 07/13/20 23:02> ED HPI GENERAL MEDICAL PROBLEM - General Chief Complaint: Headache Stated Complaint: MIGRAINE/HIGH BLO Time Seen by Provider: 07/13/20 21:38 - History of Present Illness INITIAL COMMENTS - FREE TEXT/NARRATIVE: CT scan of the head consistent with right maxillary sinus infection. Patient's pain is consistent with maxillary sinus infection on the right side. He reports that the pain is greatest in his right eye. No evidence of subarachnoid or bleed. Patient has been given Toradol 30 mg IV in the ED with some relief in his discomfort as well as IV fluids O2 and will be started on Augmentin 875 mg twice daily x10 days. Patient's exam currently reveals a nontoxic-appearing gentleman in no acute distress. Neck supple, no nuchal rigidity, no photophobia , no Kernig's sign or Brudzinski sign, patient does not present with signs or symptoms of be consistent with meningitis. Reassessment at the time of disposition demonstrates that the patient is in no acute distress. The patient has remained stable throughout the entire ED visit and is without objective evidence for acute process requiring urgent intervention or hospitalization. The patient is stable for discharge, counseling is provided as documented above, discussed symptomatic treatment and specific conditions for return. I have spoken with the patient/caregiver and discussed todays findings, in addition to providing specific details for the plan of care. Questions are answered and there is agreement with the plan. - Related Data Allergies Allergy/AdvReac Type Severity Reaction Status Date / Time No Known Allergies Allergy Verified 07/13/20 21:20 Home Meds: Home Meds Furosemide [Lasix] 40 mg PO ASDIRECTED PRN 09/02/19 [History] Isosorbide Mononitrate [Isosorbide Mononitrate ER] 30 mg PO DAILY 09/02/19 [History] Metoprolol Succinate 200 mg PO DAILY 09/02/19 [History] Spironolactone 50 mg PO DAILY 09/02/19 [History] hydrALAZINE [Apresoline] 10 mg PO TID 09/02/19 [History] lisinopriL [Prinivil] 40 mg PO DAILY 09/02/19 [History] Amoxicillin/Potassium Clav [Augmentin 875-125 Tablet] 1 each PO BID #20 tablet 07/13/20 [Rx] Apixaban [Eliquis] 5 mg PO BID 07/13/20 [History] Ivabradine HCl [Corlanor] 7.5 mg PO BID 07/13/20 [History] Departure - Departure Time of Disposition: 23:03 Disposition: Home, Self-Care 01 Condition: Good Clinical Impression: Sinusitis - Discharge Information Prescriptions: Amoxicillin/Potassium Clav [Augmentin 875-125 Tablet] 1 each PO BID #20 tablet Instructions: Sinusitis, Adult, [id number], Sinus Headache, [id number] Referrals: PCP,None [Primary Care Provider] - Forms: ED Department Discharge Additional Instructions: You were seen and evaluated in the ER today secondary to your right-sided headache. Your CT scan reveals that you do have a right-sided maxillary sinus infection. You will be started on Augmentin 875 mg twice a day for 10 days. You may also take ibuprofen and Tylenol to assist with a headache until the infection is cleared. The following information is given to patients seen in the emergency department who are being discharged to home. This information is to outline your options for follow-up care. We provide all patients seen in our emergency department with a follow-up referral. The need for follow-up, as well as the timing and circumstances, are variable depending upon the specifics of your emergency department visit. If you don't have a primary care physician on staff, we will provide you with a referral. We always advise you to contact your personal physician following an emergency department visit to inform them of the circumstance of the visit and for follow-up with them and/or the need for any referrals to a consulting specialist. The emergency department will also refer you to a specialist when appropriate. This referral assures that you have the opportunity for follow-up care with a specialist. All of these measure are taken in an effort to provide you with optimal care, which includes your follow-up. Under all circumstances we always encourage you to contact your private physician who remains a resource for coordinating your care. When calling for follow-up care, please make the office aware that this follow-up is from your recent emergency room visit. If for any reason you are refused follow-up, please contact the [facility] Emergency Department at and asked to speak to the emergency department charge nurse. [facility] - Primary Care [address] [place] [address] [id number] [facility] [address] [place] [id number] <Anna Velazco - Last Filed: 07/14/20 10:08> ED HPI GENERAL MEDICAL PROBLEM - General Source of Information: Reports: Patient History Limitations: Reports: No Limitations - History of Present Illness INITIAL COMMENTS - FREE TEXT/NARRATIVE: HISTORY AND PHYSICAL: History of present illness: Patient is a 40-year-old male who presents to the ED today with concern of intermittent headache over the last 2 days that he describes behind his right eye and states that it is sharp and has associated eye watering. Patient states that the headache is coming and going and he currently does have a headache at this time. Patient states that he thought his blood pressure could be related so he checked his blood pressure at home and it was slightly elevated so came to the emergency room to be evaluated. Patient states his blood pressure at home was 160s but he is unsure of the bottom number. Patient denies any head injury or trauma. Patient states he does have a history of hypertension and is on blood pressure medication and states he did take these as prescribed today. Patient does state that this is the worst headache he has ever had and states that he took 1 g of Tylenol approximately 2 hours before coming to the emergency room without relief of his headache. Patient states he does have a defibrillator placed due to congestive heart failure stating that at times he has had a low ejection fracture so they put in a defibrillator as a precautionary measure. Patient states that it is not a pacemaker and he has never been shocked from his defibrillator. Patient denies fever, chills, chest pain, shortness of breath, or cough. Denies neck stiff ness, change in vision, syncope, or near syncope. Denies nausea, vomiting, abdominal pain, diarrhea, constipation, or dysuria. Has not noted any blood in urine or stool. Patient has been eating and drinking appropriately. Review of systems: As per history of present illness and below otherwise all systems reviewed and negative. Past medical history: As per history of present illness and as reviewed below otherwise noncontributory. Surgical history: As per history of present illness and as reviewed below otherwise noncontributory. Social history: See social history for further information Family history: As per history of present illness and as reviewed below otherwise noncontributory. Physical exam: General: Patient is alert, oriented, and in no acute distress. Patient sitting comfortably on exam table. Vitals stable and reviewed by me. HEENT: Atraumatic, normocephalic, pupils equal and reactive bilaterally, negative for conjunctival pallor or scleral icterus, mucous membranes moist, TMs normal bilaterally, throat clear, neck supple, nontender, trachea midline. No drooling or trismus noted. No meningeal signs. No hot potato voice noted. Lungs: Clear to auscultation, breath sounds equal bilaterally, chest nontender. Heart: S1S2, regular rate and rhythm without overt murmur Abdomen: Soft, nondistended, nontender. Negative for masses or hepatosplenomegaly. Negative for costovertebral tenderness. Pelvis: Stable nontender. Genitourinary: Deferred. Rectal: Deferred. Skin: Intact, warm, dry. No lesions or rashes noted. Extremities: Atraumatic, negative for cords or calf pain. Neurovascular unremarkable. Neuro: Awake, alert, oriented. Cranial nerves II through XII unremarkable. Cerebellum unremarkable. Motor and sensory unremarkable throughout. Exam nonfocal. Notes: Dr. Chaidez has assumed care of patient at 21:[address] and reassessment of patient. Diagnostics: Head CT Therapeutics: O2, NS, Benadryl Prescription: Impression: Headache Plan: Definitive disposition and diagnosis as appropriate pending reevaluation and review of above. Head Pain Score (Numeric/FACES): 10 Past Medical History HEENT History: Reports: None Cardiovascular History: Reports: Automatic Implantable Cardioverter Defibrillators, Hypertension Other Cardiovascular History: Defibrillator placed 07/04/20. Respiratory History: Reports: None Gastrointestinal History: Reports: None Genitourinary History: Reports: None Musculoskeletal History: Reports: None Neurological History: Reports: Migraines Psychiatric History: Reports: None Endocrine/Metabolic History: Reports: None Hematologic History: Reports: None Immunologic History: Reports: None Oncologic (Cancer) History: Reports: None Dermatologic History: Reports: None - Infectious Disease History Infectious Disease History: Reports: None - Past Surgical History Head Surgeries/Procedures: Reports: None Social & Family History - Family History Family Medical History: Noncontributory - Tobacco Use Tobacco Use Status *Q: Current Every Day Tobacco User Years of Tobacco use: 15 Packs/Tins Daily: 0.5 - Caffeine Use Caffeine Use: Reports: Energy Drinks - Recreational Drug Use Recreational Drug Use: No - Living Situation & Occupation Living situation: Reports: , with Spouse, with Family Occupation: Employed ED ROS GENERAL - Review of Systems Review Of Systems: Comprehensive ROS is negative, except as noted in HPI. ED EXAM, GENERAL - Physical Exam Exam: See Below (see dictation) Course - Vital Signs Last Recorded V/S: Last Vital Signs Temp 97.6 F 07/13/20 21:21 Pulse 79 07/13/20 23:15 Resp 14 07/13/20 23:15 BP 130/89 07/13/20 23:15 Pulse Ox 96 07/13/20 23:15 - Orders/Labs/Meds Meds: Medications Discontinued Medications Generic Name Dose Route Start Last Admin Trade Name Stanton PRN Reason Stop Dose Admin Amoxicillin/Clavulanate Potassium 1 tab 07/13/20 22:53 07/13/20 23:00 Augmentin 875 Mg/125 Mg PO 07/13/20 22:54 1 tab ONETIME ONE Administration Diphenhydramine HCl 25 mg 07/13/20 21:45 07/13/20 22:02 Benadryl IVPUSH 07/13/20 21:46 25 mg ONETIME ONE Administration Sodium Chloride 1,000 mls @ 999 mls/hr 07/13/20 21:44 07/13/20 22:02 Normal Saline IV 07/13/20 22:44 999 mls/hr STAT ONE Administration Ketorolac Tromethamine 30 mg 07/13/20 22:46 07/13/20 22:57 Toradol IVPUSH 07/13/20 22:47 30 mg ONETIME ONE Administration Sepsis Event Note (ED) - Evaluation Sepsis Screening Result: No Definite Risk - Focused Exam Vital Signs: Vital Signs Pulse Resp BP Pulse Ox 07/13/20 23:15 79 14 130/89 96
[2020-07-13] MEDS ORDERED: Ketorolac 30 MG/ML SDV IVPUSH ONE (22:46)
--- NOTE | 2020-07-13 22:46 | CT ---
INDICATION: headache behind right eye CT HEAD WITHOUT CONTRAST TECHNIQUE: Multiple axial CT images were performed through the head without intravenous contrast administration. COMPARISON: No previous studies are currently available for comparison. FINDINGS: No acute intracranial hemorrhage is identified. No extra-axial collections are evident and there is no mass effect or midline shift. Ventricles are normal in size and configuration. Brain parenchyma appears normal with unremarkable agustin-white differentiation. Osseous structures are within normal limits and no fractures are seen. Included portions of the paranasal sinuses show prominent mucosal thickening within the right maxillary sinus consistent with sinusitis. The mastoid air cells are normally aerated. IMPRESSION: 1. No intracranial abnormality identified. 2. Right maxillary sinus mucosal thickening consistent with sinusitis. MIGUEL WARE MD [employer] Dictated by Wilton Ware MD @ 07/13/2020 10:43:56 PM Dictated by: Wilton Ware MD @ 07/13/2020 22:44:05 (Electronically Signed)
[2020-07-13] MEDS ORDERED: Amoxicillin/Clavulanate K 875-125 MG Tab PO ONE (22:53)
[2020-07-13 23:21] VITALS: BP 130/89; PULSE 79
== END 2020-07-13 23:15 | disposition home or self-care (01) ==
LOC: MW.ED 21:01
DX: J32.9 Chronic sinusitis, unspecified (principal); I11.0 Hypertensive heart disease with heart failure; I50.9 Heart failure, unspecified; F17.210 Nicotine dependence, cigarettes, uncomplicated
CPT/HCPCS: 70450; 96374; 96375; 99284; A9270; J1200; J1885; J7030; 99283

== ENCOUNTER 2021-03-21 08:30 | Emergency (ER) | payer MEDICAID ==
--- NOTE | 2021-03-21 10:20 | EDM.PDOC ---
ED HPI GENERAL MEDICAL PROBLEM - General Chief Complaint: Upper Extremity Injury/Pain Stated Complaint: LFT ARM PAIN IN HAND Time Seen by Provider: 03/21/21 10:02 Source of Information: Reports: Patient History Limitations: Reports: No Limitations - History of Present Illness INITIAL COMMENTS - FREE TEXT/NARRATIVE: HISTORY AND PHYSICAL: History of present illness: Patient is a 41-year-old male who presents to the ED today with concern of left thumb and wrist pain that has been ongoing for the past 2 weeks. Patient denies any trauma or injury to the thumb but states that certain movements make it drastically worse. 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 Patient states he is fully able to move the hand but does have pain with doing so. Patient denies any redness or swelling or any other symptoms or concerns. Patient denies fever, chills, chest pain, shortness of breath, or cough. Denies headache, neck stiff ness, change in vision, syncope, or near syncope. Denies nausea, vomiting, abdominal pain, diarrhea, constipation, or dysuria. Has not noted any blood in urine or stool. Patient has been eating and drinking appropriately. Review of systems: As per history of present illness and below otherwise all systems reviewed and negative. Past medical history: As per history of present illness and as reviewed below otherwise noncontributory. Surgical history: As per history of present illness and as reviewed below otherwise noncontributory. Social history: See social history for further information Family history: As per history of present illness and as reviewed below otherwise noncontributory. Physical exam: General: Patient is alert, oriented, and in no acute distress. Patient sitting comfortably on exam table. Vitals stable and reviewed by me. HEENT: Atraumatic, normocephalic, pupils equal and reactive bilaterally, negative for conjunctival pallor or scleral icterus, mucous membranes moist, TMs normal bilaterally, throat clear, neck supple, nontender, trachea midline. No drooling or trismus noted. No meningeal signs. No hot potato voice noted. Lungs: Clear to auscultation, breath sounds equal bilaterally, chest nontender. Heart: S1S2, regular rate and rhythm without overt murmur Abdomen: Soft, nondistended, nontender. Negative for masses or hepatosplenomegaly. Negative for costovertebral tenderness. Pelvis: Stable nontender. Genitourinary: Deferred. Rectal: Deferred. Skin: Intact, warm, dry. No lesions or rashes noted. Extremities: No obvious deformity of the complete left upper extremity. Patient does have a positive Corrina's test consistent with de Quervain's tenosynovitis. Patient also has positive Phalen and Tinel's sign suggestive of possible carpal tunnel. Patient does have full range of motion of the complete left upper extremity without pain or difficulty. Radial pulses grossly intact of the left upper extremity with capillary refill less than 2 seconds. Otherwise, atraumatic, negative for cords or calf pain. Neurovascular unremarkable. Neuro: Awake, alert, oriented. Cranial nerves II through XII unremarkable. Cerebellum unremarkable. Motor and sensory unremarkable throughout. Exam nonfocal. Notes: Signs and symptoms are prompt return to the ED thoroughly discussed with patient. Discussed importance for follow-up with a primary care provider. Voices understanding and is agreeable to plan of care. Denies any further questions or concerns at this time. Diagnostics: None Therapeutics: Thumb spica splint to use until follow-up with a primary care provider for de Quervain's tenosynovitis versus carpal tunnel Prescription: None Impression: Left wrist/thumb pain, presumed de Quervain's tenosynovitis versus carpal tunnel Plan: 1. Use the wrist splint until follow-up with your primary care provider as discussed. 2. You can alternate ibuprofen and Tylenol as directed for pain and discomfort. 3. Follow-up with your primary care provider as discussed. Return to the ED as needed and as discussed. Definitive disposition and diagnosis as appropriate pending reevaluation and review of above. left thumb Pain Score (Numeric/FACES): 4 - Related Data Allergies Allergy/AdvReac Type Severity Reaction Status Date / Time No Known Allergies Allergy Verified 03/21/21 10:06 Home Meds: Home Meds Furosemide [Lasix] 40 mg PO ASDIRECTED PRN 09/02/19 [History] Isosorbide Mononitrate [Isosorbide Mononitrate ER] 30 mg PO DAILY 09/02/19 [History] Metoprolol Succinate 200 mg PO DAILY 09/02/19 [History] Spironolactone 50 mg PO DAILY 09/02/19 [History] hydrALAZINE [Apresoline] 10 mg PO TID 09/02/19 [History] lisinopriL [Prinivil] 40 mg PO DAILY 09/02/19 [History] Amoxicillin/Potassium Clav [Augmentin 875-125 Tablet] 1 each PO BID #20 tablet 07/13/20 [Rx] Apixaban [Eliquis] 5 mg PO BID 07/13/20 [History] Ivabradine HCL [Corlanor] 7.5 mg PO BID 07/13/20 [History] Past Medical History HEENT History: Reports: None Cardiovascular History: Reports: Automatic Implantable Cardioverter Defibrillators, Hypertension Other Cardiovascular History: Defibrillator placed 07/04/20. Respiratory History: Reports: None Gastrointestinal History: Reports: None Genitourinary History: Reports: None Musculoskeletal History: Reports: None Neurological History: Reports: Migraines Psychiatric History: Reports: None Endocrine/Metabolic History: Reports: None Hematologic History: Reports: None Immunologic History: Reports: None Oncologic (Cancer) History: Reports: None Dermatologic History: Reports: None - Infectious Disease History Infectious Disease History: Reports: None - Past Surgical History Head Surgeries/Procedures: Reports: None Social & Family History - Family History Family Medical History: No Pertinent Family History - Tobacco Use Tobacco Use Status *Q: Current Every Day Tobacco User Years of Tobacco use: 20 Packs/Tins Daily: 0.5 - Caffeine Use Caffeine Use: Reports: Energy Drinks - Recreational Drug Use Recreational Drug Use: No - Living Situation & Occupation Living situation: Reports: , with Spouse, with Family Occupation: Employed Review of Systems - Review of Systems Review Of Systems: Comprehensive ROS is negative, except as noted in HPI. ED EXAM, GENERAL - Physical Exam Exam: See Below (See dictation) Course - Vital Signs Last Recorded V/S: Last Vital Signs Temp 97.7 F 03/21/21 09:38 Pulse 83 03/21/21 09:38 Resp 16 03/21/21 09:38 BP 135/93 H 03/21/21 09:38 Pulse Ox 96 03/21/21 09:38 - Orders/Labs/Meds Orders: Active Orders 24 hr Category Date Time Status DME for Discharge [COMM] Stat Oth 03/21/21 10:20 Ordered Departure - Departure Time of Disposition: 10:19 Disposition: Home, Self-Care 01 Clinical Impression: De Quervain's tenosynovitis, right, Carpal tunnel syndrome of left wrist, Left wrist pain - Discharge Information Referrals: PCP,None [Primary Care Provider] - Forms: ED Department Discharge Additional Instructions: The following information is given to patients seen in the emergency department who are being discharged to home. This information is to outline your options for follow-up care. We provide all patients seen in our emergency department with a follow-up referral. The need for follow-up, as well as the timing and circumstances, are variable depending upon the specifics of your emergency department visit. If you don't have a primary care physician on staff, we will provide you with a referral. We always advise you to contact your personal physician following an emergency department visit to inform them of the circumstance of the visit and for follow-up with them and/or the need for any referrals to a consulting specialist. The emergency department will also refer you to a specialist when appropriate. This referral assures that you have the opportunity for follow-up care with a specialist. All of these measure are taken in an effort to provide you with optimal care, which includes your follow-up. Under all circumstances we always encourage you to contact your private physician who remains a resource for coordinating your care. When calling for follow-up care, please make the office aware that this follow-up is from your recent emergency room visit. If for any reason you are refused follow-up, please contact the [facility] Emergency Department at and asked to speak to the emergency department charge nurse. [facility] [address] [place] [id number] [address] 1. Use the wrist splint until follow-up with your primary care provider as discussed. 2. You can alternate ibuprofen and Tylenol as directed for pain and discomfort. 3. Follow-up with your primary care provider as discussed. Return to the ED as needed and as discussed. Sepsis Event Note (ED) - Evaluation Sepsis Screening Result: No Definite Risk - Focused Exam Vital Signs: Vital Signs Temp Pulse Resp BP Pulse Ox 03/21/21 09:38 97.7 F 83 16 135/93 H 96 - My Orders Last 24 Hours: My Active Orders 03/21/21 10:20 DME for Discharge [COMM] Stat - Assessment/Plan Last 24 Hours: My Active Orders 03/21/21 10:20 DME for Discharge [COMM] Stat
[2021-03-21 11:06] VITALS: BP 130/97; PULSE 75
== END 2021-03-21 11:07 | disposition home or self-care (01) ==
LOC: MW.ED 08:30
DX: G56.02 Carpal tunnel syndrome, left upper limb (principal); M65.4 Radial styloid tenosynovitis [de Quervain]; I10 Essential (primary) hypertension; Z72.0 Tobacco use; Z79.01 Long term (current) use of anticoagulants; Z79.899 Other long term (current) drug therapy
CPT/HCPCS: 99283

== ENCOUNTER 2021-04-20 23:23 | Emergency (ER) | payer MEDICAID ==
[2021-04-20] MEDS ORDERED: Sodium Chloride 0.9% 10 ML Syringe FLUSH PRN (23:48)
[2021-04-20] MEDS ORDERED: Sodium Chloride 0.9% 2.5 ML Syringe FLUSH PRN (23:48)
[2021-04-20] MEDS ORDERED: Morphine 4 MG/ML Syringe IVPUSH ONE (23:51)
[2021-04-20] MEDS ORDERED: Ondansetron 4 MG/2 ML SDV IVPUSH ONE (23:51)
[2021-04-21 00:45] LABS: BLOOD UREA NITROGEN,BUN 14 mg/dL (7.0-18.0); CARBON DIOXIDE,CO2 24.8 mmol/L (21.0-32.0); CHLORIDE,CL 103 mmol/L (98-107); GLUCOSE RANDOM 131 mg/dL (74-106); SODIUM,NA 141 mmol/L (136-148)
--- NOTE | 2021-04-21 00:56 | CR ---
INDICATION: Chest pain TECHNIQUE: Chest 1 view COMPARISON: 09/02/2019 FINDINGS: Cardiovascular and mediastinum: Heart size and vasculature are normal in caliber and appearance. Lungs and pleural spaces: Lungs are clear. No sign of infiltrate or mass. No sign of pleural effusion. No pneumothorax. Bones and soft tissues: Cardiac device overlies the left chest. IMPRESSION: No acute findings. Dictated by Len Maxwell MD @ 04/21/2021 12:56:[address] Len Maxwell @ Apr 21 2021 12:56AM
--- NOTE | 2021-04-21 01:59 | EDM.PDOC ---
ED HPI GENERAL MEDICAL PROBLEM - General Chief Complaint: Chest Pain Stated Complaint: CHEST PAIN, HEART RACING Time Seen by Provider: 04/20/21 23:51 - History of Present Illness INITIAL COMMENTS - FREE TEXT/NARRATIVE: HISTORY AND PHYSICAL: History of present illness: This is a 41-year-old gentleman with history significant for cardiomyopathy, hypertension, status post defibrillator secondary to his cardiomyopathy, who presents ER today secondary to sharp left-sided chest pain that he has had for quite some time since he had his defibrillator placed. Patient reports that last week he saw his book mender, Dr. Johnson, and had a full work-up for the pain that he was having in the left side of his chest. Dr. Johnson told it was likely secondary to the wires tiling underneath his left chest. He reports that he had labs as well as an echocardiogram and was told that they look normal. Patient denies any recent fevers, shakes, chills, nausea, vomiting, diarrhea, dysuria, frequency, urgency, shortness of breath. Patient reports that today he was at the bar playing pool and had 2-3 alcoholic beverages while playing pool. Patient reports he did smoke a couple cigarettes. Patient denies any drug use. Review of systems: As per history of present illness and below otherwise all systems reviewed and negative. Past medical history: As per history of present illness and as reviewed below otherwise noncontributory. Surgical history: As per history of present illness and as reviewed below otherwise noncontributory. Social history: No reported history of drug abuse. Family history: As per history of present illness and as reviewed below otherwise noncontributory. Physical exam: This patient was seen and evaluated during the 2019 SARS-CoV-2 novel coronavirus pandemic period. Community viral transmission is ongoing at time of this encounter and the emergency department is operating under pandemic response procedures. Constitutional: Patient is oriented to person, place, and time. Appears well- developed and well-nourished. No distress. HEENT: Moist mucous membranes Head: Normocephalic and atraumatic Eyes: Right eye exhibits no discharge. Left eye exhibits no discharge. No scleral icterus Neck: Normal range of motion. No tracheal deviation present. Cardiovascular: Normal rate and regular rhythm. Pulmonary: Effort normal, no respiratory distress. Abdominal: No distention Musculoskeletal: Normal range of motion Neurologic: Alert and oriented to person, place and time. Skin: Capitan, warm and dry. Psychiatric: Normal mood and affect. Behavior is normal. Judgment and thought content normal. Nursing note and vital signs have been reviewed Patient's ER physical exam is significant for 100% reproducible pain to palpation to his left anterior chest wall. Patient jumps and screams every time I touch his left anterior chest wall. Diagnostics: EKG date April 20, 2021 at 11:25 PM EKG: As interpreted by ER physician: Dm: Nonspecific ST-T wave abnormalities Normal axis, LVH No evidence of ST elevation ID Sinus tachycardia with a heart rate of 120 Chest Xray: Normal cardiac silhouette No infiltrates or effusions identified. No PTX No evidence of acute bony fracture. As interpreted by ER MD: Dm CBC, CMP, troponin, D-dimer all within normal limits Therapeutics: Morphine 4 mg IV/Zofran 4 mg IV Assessment and plan: 41-year-old gentleman who presents ER today with reproducible anterior chest wall that similar to the pain that he has been having that he seen his book mender for and his book mender felt that it was noncardiac in nature. In the ED patient was given 4 mg of IV morphine with near complete resolution of the pain and discomfort. Patient is on anticoagulation therapy so NSAIDs were avoided. Patient's pain today does not appear to be consistent with a cardiac etiology. Patient reports he has not had any stents or ID in the past and has cardiomyopathy of unclear etiology. Given the patient's reproducible nature of his pain is a feel that the patient's pain is not cardiac in origin and although this is a high risk patient in general, I feel that he will be discharged home safely today and will need to follow-up with his book mender/PCP tomorrow. I have discussed the plan with the patient and he is in complete agreement. Although I feel that the patient is stable for discharge I have offered him admission if he feels uncomfortable however patient at this time is declining admission and feels comfortable with the plan to be discharged home. Reassessment at the time of disposition demonstrates that the patient is in no acute distress. The patient has remained stable throughout the entire ED visit and is without objective evidence for acute process requiring urgent intervention or hospitalization. The patient is stable for discharge, counseling is provided as documented above, discussed symptomatic treatment and specific conditions for return. I have spoken with the patient/caregiver and discussed todays findings, in a ddition to providing specific details for the plan of care. Questions are answered and there is agreement with the plan. Definitive disposition and diagnosis as appropriate pending reevaluation and re view of above. Left Lower Chest Pain Score (Numeric/FACES): 9 - Related Data Allergies Allergy/AdvReac Type Severity Reaction Status Date / Time No Known Allergies Allergy Verified 03/21/21 10:06 Home Meds: Home Meds Furosemide [Lasix] 40 mg PO ASDIRECTED PRN 09/02/19 [History] Isosorbide Mononitrate [Isosorbide Mononitrate ER] 30 mg PO DAILY 09/02/19 [History] Metoprolol Succinate 200 mg PO DAILY 09/02/19 [History] Spironolactone 50 mg PO DAILY 09/02/19 [History] hydrALAZINE [Apresoline] 10 mg PO TID 09/02/19 [History] lisinopriL [Prinivil] 40 mg PO DAILY 09/02/19 [History] Amoxicillin/Potassium Clav [Augmentin 875-125 Tablet] 1 each PO BID #20 tablet 07/13/20 [Rx] Apixaban [Eliquis] 5 mg PO BID 07/13/20 [History] Ivabradine HCL [Corlanor] 7.5 mg PO BID 07/13/20 [History] Past Medical History HEENT History: Reports: None Cardiovascular History: Reports: Automatic Implantable Cardioverter Defibrillators, Hypertension Other Cardiovascular History: Defibrillator placed 07/04/20. Respiratory History: Reports: None Gastrointestinal History: Reports: None Genitourinary History: Reports: None Musculoskeletal History: Reports: None Neurological History: Reports: Migraines Psychiatric History: Reports: None Endocrine/Metabolic History: Reports: None Hematologic History: Reports: None Immunologic History: Reports: None Oncologic (Cancer) History: Reports: None Dermatologic History: Reports: None - Infectious Disease History Infectious Disease History: Reports: None - Past Surgical History Head Surgeries/Procedures: Reports: None Social & Family History - Family History Family Medical History: No Pertinent Family History - Caffeine Use Caffeine Use: Reports: Energy Drinks - Recreational Drug Use Recreational Drug Use: No - Living Situation & Occupation Living situation: Reports: , with Spouse, with Family Occupation: Employed ED ROS GENERAL - Review of Systems Review Of Systems: See Below ED EXAM, GENERAL - Physical Exam Exam: See Below Course - Vital Signs Last Recorded V/S: Last Vital Signs Temp 97.3 F 04/20/21 23:37 Pulse 93 04/21/21 01:24 Resp 16 04/21/21 01:24 BP 116/63 04/21/21 01:24 Pulse Ox 97 04/21/21 01:24 - Orders/Labs/Meds Orders: Active Orders 24 hr Category Date Time Status EKG Documentation Completion [RC] AM Care 04/20/21 23:48 Active Sodium Chloride 0.9% [Saline Flush] Med 04/20/21 23:48 Active 10 ml FLUSH ASDIRECTED PRN Sodium Chloride 0.9% [Saline Flush] Med 04/20/21 23:48 Active 2.5 ml FLUSH ASDIRECTED PRN Saline Lock Insert [OM.PC] Stat Oth 04/20/21 23:48 Ordered Medication Orders Sodium Chloride (Sodium Chloride 0.9% 10 Ml Syringe) 10 ml FLUSH ASDIRECTED PRN PRN Reason: Keep Vein Open Sodium Chloride (Sodium Chloride 0.9% 2.5 Ml Syringe) 2.5 ml FLUSH ASDIRECTED P RN PRN Reason: Keep Vein Open Labs: Laboratory Tests 04/20/21 04/20/21 04/20/21 Range/Units 23:30 23:30 23:30 WBC 7.79 (4.0-11.0) K/uL RBC 4.48 L (4.50-5.90) M/uL Hgb 14.5 (13.0-17.0) g/dL Hct 40.5 (38.0-50.0) % MCV 90.4 (80.0-98.0) fL MCH 32.4 H (27.0-32.0) pg MCHC 35.8 (31.0-37.0) g/dL RDW Std Deviation 45.5 (28.0-62.0) fl RDW Coeff of Mahendra 14 (11.0-15.0) % Plt Count 294 (150-400) K/uL MPV 10.50 (7.40-12.00) fL Neut % (Auto) 39.5 L (48.0-80.0) % Lymph % (Auto) 52.5 H (16.0-40.0) % Reagan % (Auto) 7.1 (0.0-15.0) % Eos % (Auto) 0.5 (0.0-7.0) % Baso % (Auto) 0.4 (0.0-1.5) % Neut # (Auto) 3.1 (1.4-5.7) K/uL Lymph # (Auto) 4.1 H (0.6-2.4) K/uL Reagan # (Auto) 0.6 (0.0-0.8) K/uL Eos # (Auto) 0.0 (0.0-0.7) K/uL Baso # (Auto) 0.0 (0.0-0.1) K/uL Nucleated RBC % 0.0 /100WBC Nucleated RBCs # 0 K/uL D-Dimer, Quantitative < 0.19 (0.0-0.50) mg/L FEU Sodium 141 (136-148) mmol/L Potassium 4.0 (3.5-5.1) mmol/L Chloride 103 (98-107) mmol/L Carbon Dioxide 24.8 (21.0-32.0) mmol/L BUN 14 (7.0-18.0) mg/dL Creatinine 1.3 (0.8-1.3) mg/dL Est Cr Clr Drug Dosing TNP Estimated GFR (MDRD) > 60.0 ml/min Glucose 131 H (74-106) mg/dL Calcium 8.0 L (8.5-10.1) mg/dL Total Bilirubin 0.4 (0.2-1.0) mg/dL AST 36 (15-37) IU/L ALT 69 H (14-63) IU/L Alkaline Phosphatase 61 (46-116) U/L Troponin I < 0.050 (0.000-0.056) ng/mL Total Protein 7.6 (6.4-8.2) g/dL Albumin 4.0 (3.4-5.0) g/dL Globulin 3.6 (2.6-4.0) g/dL Albumin/Globulin Ratio 1.1 (0.9-1.6) Meds: Medications Generic Name Dose Route Start Last Admin Trade Name Freq PRN Reason Stop Dose Admin Sodium Chloride 10 ml 04/20/21 23:48 Sodium Chloride 0.9% 10 Ml Syringe FLUSH ASDIRECTED PRN Keep Vein Open Sodium Chloride 2.5 ml 04/20/21 23:48 Sodium Chloride 0.9% 2.5 Ml Syringe FLUSH ASDIRECTED PRN Keep Vein Open Discontinued Medications Generic Name Dose Route Start Last Admin Trade Name Stanton PRN Reason Stop Dose Admin Morphine Sulfate 4 mg 04/20/21 23:51 04/21/21 00:07 Morphine 4 Mg/Ml Syringe IVPUSH 04/20/21 23:52 4 mg ONETIME ONE Administration Ondansetron HCl 4 mg 04/20/21 23:51 04/21/21 00:06 Ondansetron 4 Mg/2 Ml Sdv IVPUSH 04/20/21 23:52 4 mg ONETIME ONE Administration Departure - Departure Time of Disposition: 02:10 Disposition: Home, Self-Care 01 Condition: Good Clinical Impression: Acute chest wall pain - Discharge Information Instructions: Chest Wall Pain, [id number] Referrals: Brett Bowden MD [Primary Care Provider] - Forms: ED Department Discharge Additional Instructions: Your seen and evaluated in the ER today secondary to pain to your left chest. The pain that you are experiencing today does not appear to be secondary to a primary cardiac source. This may be related to the defibrillator that you have in place. Please continue to follow-up with Dr. Johnson for further evaluation of your pain. Please keep your appointment with your family doctor so they can review all your test results with you. The following information is given to patients seen in the emergency department who are being discharged to home. This information is to outline your options for follow-up care. We provide all patients seen in our emergency department with a follow-up referral. The need for follow-up, as well as the timing and circumstances, are variable depending upon the specifics of your emergency department visit. If you don't have a primary care physician on staff, we will provide you with a referral. We always advise you to contact your personal physician following an emergency department visit to inform them of the circumstance of the visit and for follow-up with them and/or the need for any referrals to a consulting specialist. The emergency department will also refer you to a specialist when appropriate. This referral assures that you have the opportunity for follow-up care with a specialist. All of these measure are taken in an effort to provide you with optimal care, which includes your follow-up. Under all circumstances we always encourage you to contact your private physician who remains a resource for coordinating your care. When calling for follow-up care, please make the office aware that this follow-up is from your recent emergency room visit. If for any reason you are refused follow-up, please contact the [facility] Emergency Department at and asked to speak to the emergency department charge nurse. [facility] [address] [place] [id number] [facility] [address] [place] [id number] Sepsis Event Note (ED) - Focused Exam Vital Signs: Vital Signs Temp Pulse Resp BP Pulse Ox 04/21/21 01:24 93 16 116/63 97 04/20/21 23:37 97.3 F 86 16 147/101 H 100 - My Orders Last 24 Hours: My Active Orders 04/20/21 23:48 EKG Documentation Completion [RC] AM Sodium Chloride 0.9% [Saline Flush] 10 ml FLUSH ASDIRECTED PRN Sodium Chloride 0.9% [Saline Flush] 2.5 ml FLUSH ASDIRECTED PRN Saline Lock Insert [OM.PC] Stat - Assessment/Plan Last 24 Hours: My Active Orders 04/20/21 23:48 EKG Documentation Completion [RC] AM Sodium Chloride 0.9% [Saline Flush] 10 ml FLUSH ASDIRECTED PRN Sodium Chloride 0.9% [Saline Flush] 2.5 ml FLUSH ASDIRECTED PRN Saline Lock Insert [OM.PC] Stat
[2021-04-21 02:32] VITALS: BP 142/95; PULSE 104
== END 2021-04-21 02:35 | disposition home or self-care (01) ==
LOC: MW.ED 23:23
DX: R07.89 Other chest pain (principal); I10 Essential (primary) hypertension; Z79.01 Long term (current) use of anticoagulants; Z95.810 Presence of automatic (implantable) cardiac defibrillator
CPT/HCPCS: 36415; 71045; 80053; 84484; 85025; 85379; 93005; 96374; 96375; 99285; J2270; J2405; 93010; 99284